=== PATIENT | male | born 1955 | race Caucasian/White ===

== ENCOUNTER 2024-08-13 11:23 | Outpatient (AMB) | payer MEDICARE, SELFPAY ==
--- NOTE | 2024-08-13 11:26 | A.OFFVIS_ITS ---
Vital Signs 08/13/24 11:35 Height 5 ft 11 in Weight 203 lb BMI 28.3 BP 132/82 Blood Pressure Location Lt brachial Position Sitting Respiration 16 Pulse 75 Pulse Source Pulse Oximeter Pulse Oximetry (%) 97 Oxygen Delivery Method Room Air Intake Visit Reasons: Severe Upper Lumbar Back Pain Intake Note: Patient comes in for initial visit was accompanied by friend Alvaro. Reports pain 08/07. Accompanied by: Friend Allergies No Known Allergies Allergy (Verified 08/13/24 11:36) HPI Comments Details: Bayron is a pleasant 69 years old gentleman who presents in my office with complains on lower back pain as well as pain in the between the shoulder blades as well as pain in the back of his knees. He reports that his pain started 2 years ago he thinks that the pain is a result of the compression fractures as well as arthritis of the lower back. He had fractured all 5 of his lumbar vertebral bodies unfortunately he had vertebroplasty instead of kyphoplasty for those vertebral bodies. Therefore while stability of the bones was established the correction of the deformities were was not performed. He is a patient with longstanding oncology history. He was diagnose with prostate cancer. He had multiple procedures, treatment with chemotherapy, treatment with testosterone blockers, extensive treatment with radiation. Some of his pain may be coming from the pelvis issues because he has extensive radiation in the past. He was examined with CT scan of the lumbar and thoracic spine and there were no metastasis found in the vertebral bodies. He reports his pain in terms of tissue damage as pulsing, throbbing, flushing, shooting, stabbing, sharp, crushing, dull, sore, hurting, aching, heavy, tiring, exhausting, sickening, fearful, punishing, spreading, radiating, piercing, tight sensation. He recently was evaluated but PSA level which is 0.1 basically non-existent. In terms of his cancer condition he is stable. He is claustrophobic and can not go to standard MRI machine. His past medical history significant for prostate cancer history of alcohol abuse history of liver cirrhosis history of gallstones history of odynophagia and difficulty swallowing history of arthritis and gout he is currently under observation of oncologist. His past surgical history is significant for modified radical prostatectomy following radiation and chemotherapy. Currently he is on testosterone blockers. He admits to smoke cigarettes 1 pack per day. He denies drinking alcohol he states that he is sober for past 3-4 months. He drinks 2 caffeinated beverages a day mostly coffee he use medicinal cannabis for his condition he reported that last rehab was for alcohol rehabilitation in 2019. She reports that his last drink was 3-4 months ago. [facility], [facility] Medical History (Updated 08/13/24 @ 16:43 by Jin Krishnamurthy MD) Prostate cancer MDD (major depressive disorder) Alcohol use disorder, severe, dependence Opioid dependence with opioid-induced disorder Cirrhosis Review of Systems Const Reports as per HPI ENT Reports Normal hearing present Card Reports no additional complaints Resp Reports no additional complaints GI Reports as per HPI Reports as per HPI Musc Reports as per HPI Neuro Reports no additional complaints, Reports Normal hearing present, Denies Abnormal speech present, Denies confusion and Denies Sensory deficit (Neuro) Psych Reports as per HPI and Denies confusion Physical Exam Vital Signs: Last Vital Signs Pulse 75 08/13/24 11:35 Resp 16 08/13/24 11:35 BP 132/82 08/13/24 11:35 Pulse Ox 97 08/13/24 11:35 Oxygen Delivery Method Room Air 08/13/24 11:35 BMI result Body Mass Index 28.3 Const General: no acute distress; No confusion Orientation/consciousness: patient oriented x3 and No confusion Eyes General: appearance normal, both eyes and all related structures Pupils: Equal, round and reactive pupils present EOM: EOMs intact bilaterally Neck Neck: Yes full ROM Chest Chest palpation & inspection: normal inspection of the chest Resp Effort & Inspection: normal respiratory effort, able to speak in complete sentences, normal respiratory pattern, no audible wheezes and no cough Cardio Jugular venous distension: no JVD GI Inspection: Yes normal to inspection Back/Spine/Pelvis Other: Unable to ambulate unassisted. Reports weakness in bilateral lower extremities. Ambulate with walker only. Exhibits classical forward flexion of the upper torso, reports increase of the pain with walking. Coughing and sneezing aggravates his pain. Valsalva maneuver aggravates his pain. Possibly spinal stenotic features. Neuro General: patient oriented x3, gait normal and No confusion Cranial nerves: Yes CN's II-XII intact bilaterally, Yes Equal, round and reac tive pupils present, Yes Normal hearing present and Yes Ability to bilaterally elevate shoulders present Speech: No Abnormal speech present Gait exam (Neuro): Normal gait present Motor exam (neuro): 5/5 motor strength present throughout Sensory Exam: No Sensory deficit (Neuro) Extrem General: No pedal edema Psych Speech and movement: Normal speech and movement present Affect: normal affect Attitude: cooperative Thought process: Normal thought process present Thought content: Normal thought content present Insight: Good insight present (Psych) Judgement: Good judgement present (Psych) Assessment & Plan Assessment & Plan (1) Sacral insufficiency fracture with delayed healing: Code(s): M84.48XG - Pathological fracture, other site, subsequent encounter for fracture with delayed healing Category: Medical (2) Low back pain: Code(s): M54.50 - Low back pain, unspecified Category: Medical (3) Spinal stenosis: Code(s): M48.00 - Spinal stenosis, site unspecified Category: Medical (4) Wedge compression fracture of fifth lumbar vertebra, sequela: Code(s): S32.050S - Wedge compression fracture of fifth lumbar vertebra, sequela Category: Medical (5) Chronic pain syndrome: Code(s): G89.4 - Chronic pain syndrome Category: Medical Plan We discussed today possibility of treating his pain with neuromodulation such as spinal cord stimulator versus intrathecal drug delivery system pain pump. The patient apparently we will be able to go for the MRI machine to evaluate his lumbar lumbar spine provided that this is open MRI. We will send him to [facility] MRI open facility. He also had sacral insufficiency fracture in the past some of his pain may come from not completely healed sacral insufficiency fracture. I will send him for x-ray of the pelvis to evaluate for potential sacral insufficiency fracture. After that I will invite patient for the appointment while reports already. I recommended him to schedule appointment with me in 1 month. Orders: Orders MR lumbar spine wo con Today M51.36 - Other intervertebral disc degeneration, lumbar region XR pelvis min 3V Today M54.50 - Low back pain, unspecified, M84.48XG - Pathological fracture, other site, subsequent encounter for fracture with delayed healing Patient Instructions: I here by testify that I spent 45 minutes in conversation with this patient as well as evaluating his referral records, planning his care, ordering the studies, and organizing this note. Coding Level of Care Code New Pt Level 4 (30091) Diagnoses Sacral insufficiency fracture with delayed healing M84.48XG Low back pain M54.50 Spinal stenosis M48.00 Wedge compression fracture of fifth lumbar vertebra, sequela S32.050S Chronic pain syndrome G89.4
[2024-08-13 11:35] VITALS: BP 132/82; PULSE 75; RESP 16; O2SAT 97; BMI 28.3
== END 2024-08-13 12:00 | disposition home or self-care (01) ==
PROVIDERS: PCP Internal Medicine; Visit Provider Anesthesiology
DX: M84.48XG Pathological fracture, other site, subsequent encounter for fracture with delayed healing (principal); M54.50 Low back pain, unspecified; M48.00 Spinal stenosis, site unspecified; G89.4 Chronic pain syndrome
CPT/HCPCS: 99204

== ENCOUNTER 2024-08-13 11:23 | Outpatient (REF) | payer MEDICARE, SELFPAY ==
--- NOTE | ~2024-08-13 | XR_ITS ---
EXAMINATION: XR PELVIS CLINICAL INFORMATION: Low back pain, patient unable to hold positioning, best images possible. COMPARISON: CT abdomen and pelvis of 01/28/2021. TECHNIQUE: 3 views of the pelvis. FINDINGS: Atherosclerotic aortoiliac calcifications with AP diameter of distal abdominal aorta approximately 3.8 cm, concerning for aneurysm. CT scan of 01/28/2021 demonstrated a 2.9 cm infrarenal abdominal aortic aneurysm. Dedicated imaging of the abdominal aorta recommended with ultrasound or CT scan. IVC filter partially imaged overlying the right mid to lower spine. Severe facet arthritis in the imaged mid to lower lumbar spine. Dense material in the lower imaged lumbar vertebral bodies with multilevel degenerative changes. Diffuse demineralization. Pubic symphysis is maintained. Severe degenerative changes in bilateral hips. Vascular calcifications. Moderate degenerative changes in bilateral sacroiliac joints. Multiple rounded pelvic calcifications, largest corticated calcification right hemipelvis measures 1.7 cm. XR/XR pelvis min 3V IMPRESSION: 1. Atherosclerotic aortoiliac calcifications with AP diameter of distal abdominal aorta approximately 3.8 cm, concerning for aneurysm. CT scan of 01/28/2021 demonstrated a 2.9 cm infrarenal abdominal aortic aneurysm. Dedicated imaging of the abdominal aorta recommended with ultrasound or CT scan. 2. Severe degenerative changes in bilateral hips. 3. Moderate degenerative changes in bilateral sacroiliac joints. Electronically signed by: Emani Castaneda MD 10/03/2024 01:30 PM [facility]
== END 2024-08-13 11:24 | disposition home or self-care (01) ==
LOC: HO.XRAY 11:23
PROVIDERS: PCP Internal Medicine; Visit Provider Anesthesiology
DX: M54.50 Low back pain, unspecified (principal); M84.48XG Pathological fracture, other site, subsequent encounter for fracture with delayed healing; M48.00 Spinal stenosis, site unspecified
CPT/HCPCS: 72190; 99202

== ENCOUNTER 2024-10-11 10:20 | Outpatient (AMB) | payer MEDICARE, SELFPAY ==
--- NOTE | 2024-10-11 10:25 | MHC.OFFVIS ---
Vital Signs 10/11/24 10:29 Height 5 ft 11 in Weight 211 lb BMI 29.4 BP 124/72 Blood Pressure Location Lt brachial Position Sitting Respiration 16 Pulse 94 Pulse Source Pulse Oximeter Pulse Oximetry (%) 94 Oxygen Delivery Method Room Air Intake Visit Reasons: discuss MRI results Intake Note: Patient comes in to discuss MRI results. Reports pain 09/06. Allergies No Known Allergies Allergy (Verified 10/11/24 10:30) HPI Comments Details: Bayron is back in my office to discuss the results of the pelvis x-ray as well as MRI of the lumbar spine. Both of the studies dictated as below. He has significant spinal stenosis. His pain and neurogenic claudication could be related to spinal stenosis. At the same time he has advanced atherosclerosis of the aorta and therefore his claudication we could be vascular in nature. We agreed today that I will send him for consult to our vascular surgeon Dr. Albrecht. For the past 5 years diameter of his aorta increased to 3.8 cm while in 2020 it was 2.9 cm. I believe this patient needs to be under observation for abdominal aortic aneurysm. I also decided to send him to our neurosurgeon Dr. Joseph however I realize that he might not be a good surgical candidate. He is a smoker he smokes 1 pack per day and he is also suffering from widespread atherosclerosis. I offered him treatment with intrathecal pain pump. [employer] brochure was given to the patient. If he decides to go for intrathecal pain pump trial he would need to give us a call and schedule an appointment we will discuss it as well as we will discuss psychological evaluation. Prior: a pleasant 69 years old gentleman who presents in my office with complains on lower back pain as well as pain in the between the shoulder blades as well as pain in the back of his knees. He reports that his pain started 2 years ago he thinks that the pain is a result of the compression fractures as well as arthritis of the lower back. He had fractured all 5 of his lumbar vertebral bodies unfortunately he had vertebroplasty instead of kyphoplasty for those vertebral bodies. Therefore while stability of the bones was established the correction of the deformities were was not performed. He is a patient with longstanding oncology history. He was diagnose with prostate cancer. He had multiple procedures, treatment with chemotherapy, treatment with testosterone blockers, extensive treatment with radiation. Some of his pain may be coming from the pelvis issues because he has extensive radiation in the past. He was examined with CT scan of the lumbar and thoracic spine and there were no metastasis found in the vertebral bodies. He reports his pain in terms of tissue damage as pulsing, throbbing, flushing, shooting, stabbing, sharp, crushing, dull, sore, hurting, aching, heavy, tiring, exhausting, sickening, fearful, punishing, spreading, radiating, piercing, tight sensation. He recently was evaluated but PSA level which is 0.1 basically non-existent. In terms of his cancer condition he is stable. He is claustrophobic and can not go to standard MRI machine. His past medical history significant for prostate cancer history of alcohol abuse history of liver cirrhosis history of gallstones history of odynophagia and difficulty swallowing history of arthritis and gout he is currently under observation of oncologist. His past surgical history is significant for modified radical prostatectomy following radiation and chemotherapy. Currently he is on testosterone blockers. He admits to smoke cigarettes 1 pack per day. He denies drinking alcohol he states that he is sober for past 3-4 months. He drinks 2 caffeinated beverages a day mostly coffee he use medicinal cannabis for his condition he reported that last rehab was for alcohol rehabilitation in 2019. She reports that his last drink was 3-4 months ago. [facility] Medical History (Updated 10/11/24 @ 12:40 by Jin Krishnamurthy MD) Prostate cancer MDD (major depressive disorder) Alcohol use disorder, severe, dependence Opioid dependence with opioid-induced disorder Cirrhosis Review of Systems Const All systems reviewed & are unremarkable except as noted in HPI and below ENT Reports Normal hearing present Neuro Reports Normal hearing present, Denies Abnormal speech present, Denies confusion and Denies Sensory deficit (Neuro) Psych Denies confusion Physical Exam Vital Signs: Last Vital Signs Pulse 94 10/11/24 10:29 Resp 16 10/11/24 10:29 BP 124/72 10/11/24 10:29 Pulse Ox 94 10/11/24 10:29 Oxygen Delivery Method Room Air 10/11/24 10:29 BMI result Body Mass Index 29.4 Const General: no acute distress; No confusion Orientation/consciousness: patient oriented x3 and No confusion Eyes General: appearance normal, both eyes and all related structures Pupils: Equal, round and reactive pupils present EOM: EOMs intact bilaterally Neck Neck: Yes full ROM Chest Chest palpation & inspection: normal inspection of the chest Resp Effort & Inspection: normal respiratory effort, able to speak in complete sentences, normal respiratory pattern, no audible wheezes and no cough Cardio Jugular venous distension: no JVD GI Inspection: Yes normal to inspection Back/Spine/Pelvis Other: Unable to ambulate unassisted. Reports weakness in bilateral lower extremities. Ambulate with walker only. Exhibits classical forward flexion of the upper torso, reports increase of the pain with walking. Coughing and sneezing aggravates his pain. Valsalva maneuver aggravates his pain. Possibly spinal stenotic features. Neuro General: patient oriented x3, gait normal and No confusion Cranial nerves: Yes CN's II-XII intact bilaterally, Yes Equal, round and reactive pupils present, Yes Normal hearing present and Yes Ability to bilaterally elevate shoulders present Speech: No Abnormal speech present Gait exam (Neuro): Normal gait present Motor exam (neuro): 5/5 motor strength present throughout Sensory Exam: No Sensory deficit (Neuro) Extrem General: No pedal edema Psych Speech and movement: Normal speech and movement present Affect: normal affect Attitude: cooperative Thought process: Normal thought process present Thought content: Normal thought content present Insight: Good insight present (Psych) Judgement: Good judgement present (Psych) Results Reviewed Results Reviewed: xr pelvis Date of Service: 08/13/24 Procedure(s): XR pelvis min 3V EXAMINATION: XR PELVIS CLINICAL INFORMATION: Low back pain, patient unable to hold positioning, best images possible. COMPARISON: CT abdomen and pelvis of 01/28/2021. TECHNIQUE: 3 views of the pelvis. FINDINGS: Atherosclerotic aortoiliac calcifications with AP diameter of distal abdominal aorta approximately 3.8 cm, concerning for aneurysm. CT scan of 01/28/2021 demonstrated a 2.9 cm infrarenal abdominal aortic aneurysm. Dedicated imaging of the abdominal aorta recommended with ultrasound or CT scan. IVC filter partially imaged overlying the right mid to lower spine. Severe facet arthritis in the imaged mid to lower lumbar spine. Dense material in the lower imaged lumbar vertebral bodies with multilevel degenerative changes. Diffuse demineralization. Pubic symphysis is maintained. Severe degenerative changes in bilateral hips. Vascular calcifications. Moderate degenerative changes in bilateral sacroiliac joints. Multiple rounded pelvic calcifications, largest corticated calcification right hemipelvis measures 1.7 cm. XR/XR pelvis min 3V IMPRESSION: 1. Atherosclerotic aortoiliac calcifications with AP diameter of distal abdominal aorta approximately 3.8 cm, concerning for aneurysm. CT scan of 01/28/2021 demonstrated a 2.9 cm infrarenal abdominal aortic aneurysm. Dedicated imaging of the abdominal aorta recommended with ultrasound or CT scan. 2. Severe degenerative changes in bilateral hips. 3. Moderate degenerative changes in bilateral sacroiliac joints. MRI lumbar spine with and without contrast Rayus 09/18/2024. Findings: Lumbar dextroscoliosis curvature. Chronic compression fractures and associated height loss status post kyphoplasty T12, L1, L3, L4, and L5. Approximate 3 mm retropulsion of the posterior margin of the chronic L1. Edema and enhancement of the posterior margins of the L3-L2 inferior and superior endplates respectively. Lumbar facet arthrosis. Conus and cauda equina of normal appearance. The conus tip at T12-L1. No acute paraspinal abnormalities identified. L1-L2 mild facet arthrosis, prominence of ligamentum flavum. Retropulsion of the posterior inferior margin of the chronic L1 fracture. This changes result in mild central stenosis with bilateral lateral recess encroachment. Mild right foraminal narrowing. [id number] left foraminal narrowing. L2-L3 facet arthrosis, prominence of ligamentum flavum. Posterior disc osteophyte. Moderate to severe central stenosis with bilateral lateral recess encroachment. Moderate bilateral foraminal narrowing, left greater than right. L3-L4 facet arthrosis and prominence of ligamentum flavum. Moderate to severe central canal stenosis with bilateral lateral recess encroachment. Severe right foraminal narrowing. Moderate to severe left foraminal narrowing. L4-5 facet arthrosis, ligamentum flavum prominence, [id number] central stenosis. Bilateral lateral recess encroachment. Moderate to severe bilateral foraminal narrowing. L5-S1 facet arthrosis no significant central stenosis moderate bilateral foraminal narrowing. Impression chronic compression fracture and associated height loss status post kyphoplasty T12, L1, L3, L4 and L5. No finding of acute fracture. 3 mm retropulsion of the posterior margin of chronic L1 fracture. Modic type 3 changes in the posterior margin of L2-L3 endplates. There is adjacent left posterior bilateral edema and enhancement at this level. Mild edematous changes and enhancement of the facet arthrosis. L1-L2 intervertebral level reveals mild facet arthrosis and prominence of ligamentum flavum. There is retropulsion of the posterior inferior margin of the chronic L1 fracture. This changes resulting in mild central stenosis with bilateral recess encroachment. Mild foraminal narrowing [id number] left foraminal narrowing. L2-L3 moderate to severe central stenosis with bilateral lateral recess encroachment. Moderate bilateral foraminal narrowing left greater than right.L4-L5 mild to moderate central canal stenosis Assessment & Plan Assessment & Plan (1) Sacral insufficiency fracture with delayed healing: Code(s): M84.48XG - Pathological fracture, other site, subsequent encounter for fracture with delayed healing Category: Medical (2) Low back pain: Code(s): M54.50 - Low back pain, unspecified Category: Medical (3) Spinal stenosis: Code(s): M48.00 - Spinal stenosis, site unspecified Category: Medical (4) Wedge compression fracture of fifth lumbar vertebra, sequela: Code(s): S32.050S - Wedge compression fracture of fifth lumbar vertebra, sequela Category: Medical (5) Chronic pain syndrome: Code(s): G89.4 - Chronic pain syndrome Category: Medical (6) Abdominal aortic aneurysm (AAA): Code(s): I71.40 - Abdominal aortic aneurysm, without rupture, unspecified Category: Medical (7) Peripheral vascular disease with claudication: Code(s): I73.9 - Peripheral vascular disease, unspecified Category: Medical (8) Neurogenic claudication: Code(s): R29.818 - Other symptoms and signs involving the nervous system Category: Medical Plan This patient is not very eager to consider Intrathecal drug delivery system pain pump treatment. Nevertheless brochure was given to him in to his caregiver to read and decide on this. I will refer him to Dr. Albrecht our vascular surgeon to evaluate his abdominal aortic aneurysm, it increased in past 3 years and now at almost 4 cm in diameter. He in any case needs follow-up. I also will refer him to Dr. Joseph with L2-L3 spinal stenosis which is moderate to severe in nature. Understandable he is not very good surgical candidate for major instrumentation with fusion however minimally invasive procedures possibly could improve his condition and prevent pelvic organ dysfunction. Orders: Referrals Vascular Surgery Referral I71.40 - Abdominal aortic aneurysm, without rupture, unspecified, I73.9 - Peripheral vascular disease, unspecified Neuro Spine Referral M48.00 - Spinal stenosis, site unspecified, R29.818 - Other symptoms and signs involving the nervous system Patient Instructions: I here by testify that I spent 35 minutes in conversation with this patient as well as planning his care making appropriate referrals and organizing this note. Coding Level of Care Code Est Pt Level 4 (80740) Diagnoses Sacral insufficiency fracture with delayed healing M84.48XG Low back pain M54.50 Spinal stenosis M48.00 Wedge compression fracture of fifth lumbar vertebra, sequela S32.050S Chronic pain syndrome G89.4 Abdominal aortic aneurysm (AAA) I71.40 Peripheral vascular disease with claudication I73.9 Neurogenic claudication R29.818
[2024-10-11 10:29] VITALS: BP 124/72; PULSE 94; RESP 16; O2SAT 94; BMI 29.4
== END 2024-10-11 10:52 | disposition home or self-care (01) ==
PROVIDERS: PCP Internal Medicine; Visit Provider Anesthesiology
DX: M54.50 Low back pain, unspecified (principal); M48.00 Spinal stenosis, site unspecified; S32.050S Wedge compression fracture of fifth lumbar vertebra, sequela; G89.4 Chronic pain syndrome; I71.40 Abdominal aortic aneurysm, without rupture, unspecified; I73.9 Peripheral vascular disease, unspecified; R29.818 Other symptoms and signs involving the nervous system
CPT/HCPCS: 99214

== ENCOUNTER → 2024-10-11 10:20 | Outpatient (BNVA) | payer MEDICARE, SELFPAY | PROVIDERS: PCP Internal Medicine; Visit Provider Anesthesiology | DX: M84.48XG Pathological fracture, other site, subsequent encounter for fracture with delayed healing (principal); M54.50 Low back pain, unspecified; M48.00 Spinal stenosis, site unspecified; G89.4 Chronic pain syndrome; I71.40 Abdominal aortic aneurysm, without rupture, unspecified; I73.9 Peripheral vascular disease, unspecified; R29.818 Other symptoms and signs involving the nervous system; Z71.2 Person consulting for explanation of examination or test findings | CPT/HCPCS: 99212 ==

== ENCOUNTER 2024-11-27 11:33 | Outpatient (AMB) | payer MEDICARE, SELFPAY ==
[2024-11-27 11:36] VITALS: BMI 29.4
--- NOTE | 2024-11-27 11:36 | A.OFFVIS_ITS ---
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 Pt states elevating legs helps with swelling. 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 He was seen by pain management team that ordered a plain film and was noted to have a 3.8 cm aneurysm. He reports that that has increased in size and it was actually seen by vascular surgery at [facility] in the remote past. At the current time he is asymptomatic from this. He smokes proximally a pack a day. He is a nondiabetic. He has been seeing pain management for persistent back pain due to lumbosacral compression fractures. He now presents to us for vascular evaluation [facility] Medical History Prostate cancer MDD (major depressive disorder) Alcohol use disorder, severe, dependence Opioid dependence with opioid-induced disorder Cirrhosis Social History (Updated 11/27/24 @ 11:43 by PARAS Nicholson) Cigarette Packs Per Day: 1 Review of Systems Const All systems reviewed & are unremarkable except as noted in HPI and below Reports no additional complaints ENT Reports Normal hearing present Card Denies chest pain, Denies chest pain at rest, Denies chest pain with activity and Denies pedal edema Resp Denies cough GI Denies abdominal pain Musc Denies abnormal gait, Denies muscle cramps and Denies radiating pain into limb Skin/Breast Denies skin ulcer and Denies wounds Neuro Reports Normal hearing present and Denies abnormal gait Psych Reports no additional complaints Physical Exam Vital Signs: BMI result Body Mass Index 29.4 Const General: cooperative, healthy appearing and comfortable Orientation/consciousness: oriented to person, oriented to place and oriented to time HEENT Head: Yes normal to inspection Neck Neck: Yes normal visual inspection Carotids: no bruits Chest Chest palpation & inspection: normal inspection of the chest Resp Effort & Inspection: normal respiratory effort and able to speak in complete sentences Auscultation: clear to auscultation bilaterally, no crackles, no rales, no rhonchi and no wheezes Cardio Other: Palpable dorsalis pedis pulses bilateral Rate: regular rate Rhythm: regular rhythm Heart sounds: S1 normal heart sound present and S2 normal heart sound present Bruits: no carotid bruits Peripheral pulses: Peripheral pulses 2+ throughout GI Inspection: Yes normal to inspection Skin Wounds: no wounds Hair: normal Neuro General: oriented to person, oriented to place and oriented to time Cranial nerves: Yes CN's II-XII intact bilaterally and Yes Normal hearing present Cognition (Neuro): normal cognition Motor exam (neuro): 5/5 motor strength present throughout Extrem Other: venous exam: +2 edema in bilateral lower extremity General: No clubbing, No cyanosis and Yes edema Psych Appearance: grossly normal Mental Status: mental status grossly normal Speech and movement: Normal speech and movement present Assessment & Plan Assessment & Plan (1) Abdominal aortic aneurysm (AAA): Code(s): I71.40 - Abdominal aortic aneurysm, without rupture, unspecified Category: Medical Qualifiers: Abdominal aorta location: infrarenal aorta Presence of rupture: without rupture Qualified Code(s): I71.43 - Infrarenal abdominal aortic aneurysm, without rupture Plan: In short patient has radiologic evidence of a AAA on on plain film x-ray of 3.8 cm. We have discussed the pathophysiology of aortic aneurysms and the risk of ruptures. We have discussed rupture risk based on size. In addition we have discussed conservative measures and risk factor modification in particular smoking cessation for prevention of increase in size of the aneurysm. We have scheduled this patient for aortic ultrasound to better elucidate the true size of this aneurysm. He will follow up with us after testing. Thank you for allowing us to participate in the care of this patient Orders: Orders US abdominal aortic aneurysm 1 Week I71.43 - Infrarenal abdominal aortic aneurysm, without rupture Coding Level of Care Code New Pt Level 4 (48288) Complex EM visit Add On G2211 Diagnoses Infrarenal abdominal aortic aneurysm (AAA) without rupture I71.43 Abdominal aorta location: infrarenal aorta Presence of rupture: without rupture
--- OUTSIDE RECORDS SUMMARY | 2024-11-27 11:45 | XMS_ITS | Continuity of Care Document ---
Author Organization [facility] Address [address] [place] [address] Phone Care Team Providers Care Utility Teller Name Role Phone Mary Correa MD Unavailable Unavailable Allergies, Adverse Reactions, Alerts Substance Reaction Status Criticality No Known Drug Allergies Active No I nformation SALICYLATES bleeding Active No Information No Known Drug Allergies Active No I nformation SALICYLATES bleeding Active No Information HYDROCODONE BITARTRATE rash Active No In formation acetaminophen rash Active No Information No Known Drug Allergies Active No I nformation No Known Drug Allergies Active No I nformation Medications Medication Instructions Dosage Effective Dates (start - stop) Status Comments Percocet 10 mg-325 mg tablet take 1 tablet by oral route every 6 hours as needed 1.00 tablet - Active Abilify 2 mg tablet - Active Zoloft 100 mg tablet take 1 tablet (100MG) by oral route every day 100 MG - Active Wellbutrin XL 300 mg 24 hr tablet, extended release take 1 tablet (300MG) by oral route every day 300 MG - Active Klor-Con/EF 25 mEq effervescent tablet take 1 tablet (25MEQ) by oral route every day dissolved in 120-240 mL of cold water 25 MEQ - Active DHEA 50 mg capsule - Active lisinopril-hydroch lorothiazide 10 mg-12.5 mg tablet take 1 tablet by oral route every day 1.00 tablet - Active buspirone 10 mg tablet take 1 tablet (10MG) by oral route 3 times every day 10 MG - Active warfarin 1 mg tablet take 1 tablet (1MG) by oral route every day 1 MG - Active Levitra 5 mg tablet take 1 tablet (5MG) by oral route every day as needed approximately 1 hour before sexual activity - Active clindamycin 300 mg capsule take 2 caps bid - No Longer Active Procedures Procedure Date Applic Short Leg Splint Offic/outpt E&m New Mod Sever 3 Fiberglass Cast sup sht leg splnt fbrgl Advance Directives Directive Yes / No Effective Date File Name Resuscitation Not Answered N/A N/A Life Support Not Answered N/A N/A Intubation Not Answered N/A N/A Antibiotics Not Answered N/A N/A IV Fluid Support Not Answered N/A N/A Tube Feed Not Answered N/A N/A Other Directive N/A N/A WARNING:The information contained in this section is historical and is provided for information only and does not constitute a legal document or any assurance that the information is still accurate. Please verify the information with the miles of the legal document before using it for clinical purposes. Encounters Encounter Description Practice Location Reason(s) For Visit Diagnoses Date Provider Providers Copied on Encounter Offic/outpt E&m [facility], [address], [place], [place], [id number], tel:[phone] [facility] CELLULITIS & ABSCESS FOOT, EXCEPFX,CL,N OS BONE OF FOOT,EXCPT TOE Madeline Hernandez. [address] [place] [address], [address], . tel:[phone] Referring Provider: Mary Correa MD, [address] [place] [address], [id number]. tel:[phone] Family History Family Member Type Diagnosis Age At Onset No Information Payers Payer name Insurance type Covered democrat ID Authoriza tion(s) No Information Social History Type Description Quantity Date Captured Comments Alcohol Use Details Unknown Caffeine Use Details Unknown Tobacco Use Status No Information Smoking Status Unknown if ever smoked 15 Sex Male Vital Signs Date / Time: Height Weight BMI Pulse Rate Blood Pressure Temperature Respiratory Rate Body Surface Area Head Circumference Head Circ. Percentile Wt./Pop. Percentile BMI percentile Pulse Ox Inhaled Ox 2:39 PM 72 /min 130/80 mm[Hg] 97.70 F Chief Complaint And Reason For Visit No Information Reason For Referral Reason For Referral No Information History Of Present Illness Encounter Date Complaint History Of Prese nt Illness No Information Functional Status Date Functional Assessmen t No Information Instructions Date Instruction Additional Infor mation No Information Assessments Type Assessment Date No Information Patient Care Teams Name Effective Dates (start - stop) Status Members No Information
--- OUTSIDE RECORDS SUMMARY | 2024-11-27 11:45 | XMS_ITS | Clinical Summary ---
Author Organization Unknown Care Team Providers Care Director Operating Room Name Role Phone KRISTIN LEONARD, DONNA Unavailable Unavaildemi BOWEN OT, SULEMA Unavailable Unavailable DAO PATTONN, TEVIN Unavailable Unavailable ALEX LANE, KOFI Unavailable Unavailable Payers Payer Name Policy Type Policy Number Effective Date Expira tion Date MEDICARE - [place] - PD [id number] [facility] [id number] Problems Condition Name Condition Details Condition Category Status Onset Date Resolution Date Last Treatment Date Treating Clinician Comments PNEUMONIA, UNSPECIFIED ORGANISM Active 03-01 00:00: 00 CHR OBSTRUCTIVE PULMON DISEASE WITH (ACUTE) LOWER RESP INFCT Active 11-28 00:00: 00 SEPSIS, UNSPECIFIED ORGANISM Active 11-28 00:00: 00 ENCOUNTER FOR ATTENTION TO GASTROSTOMY Active 11-28 00:00: 00 ALCOHOLIC CIRRHOSIS OF LIVER WITHOUT ASCITES Active 11-28 00:00: 00 ALCOHOL DEPENDENCE WITH WITHDRAWAL, UNSPECIFIED Active 11-28 00:00: 00 OTHER PSYCHOACTIVE SUBSTANCE DEPENDENCE, UNCOMPLICATE D Active 11-28 00:00: 00 ACUTE RESPIRATORY FAILURE WITH HYPOXIA Active 11-28 00:00: 00 PORTAL HYPERTENSION Active 11-28 00:00: 00 HEPATIC FAILURE, UNSPECIFIED WITHOUT COMA Active 11-28 00:00: 00 GENERALIZED ANXIETY DISORDER Active 11-28 00:00: 00 MAJOR DEPRESSIVE DISORDER, SINGLE EPISODE, UNSPECIFIED Active 11-28 00:00: 00 OTH FRACTURE OF RIGHT PUBIS, SUBS FOR FX W ROUTN HEAL Active 11-28 00:00: 00 VENOUS INSUFFICIENC Y (CHRONIC) (PERIPHERAL) Active - 00:00: 00 UNSPECIFIED OSTEOARTHRIT IS, UNSPECIFIED SITE Active 11-28 00:00: 00 CHRONIC PAIN SYNDROME Active 11-28 00:00: 00 OBSTRUCTIVE SLEEP APNEA (ADULT) (PEDIATRIC) Active 11-28 00:00: 00 DYSPHAGIA, UNSPECIFIED Active 11-28 00:00: 00 NONDISP FX OF TRAPEZIUM, R WRIST, SUBS FOR FX W ROUTN HEAL Active 11-28 00:00: 00 FRACTURE OF ONE RIB, LEFT SIDE, SUBS FOR FX W ROUTN HEAL Active 11-28 00:00: 00 OTHER TOXIC ENCEPHALOPAT HY Active 11-28 00:00: 00 ATTENTION-DE FICIT HYPERACTIVIT Y DISORDER, UNSPECIFIED TYPE Active 11-28 00:00: 00 HYPOTENSION, UNSPECIFIED Active 11-28 00:00: 00 ELEVATED WHITE BLOOD CELL COUNT, UNSPECIFIED Active 11-28 00:00: 00 RHABDOMYOLYS IS Active 11-28 00:00: 00 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 Ordering Clinician Indication Dosage Frequency Signature (SIG) Comments Components folic acid 1 mg tablet 2022-11 00:00: 00 Yes [id number] 1 tablet DAILY 1 tablet DAILY (route: oral) Med Classific ation: Electroly te Balance-N utritiona l Products nicotine 21 mg/24 hr daily transdermal patch 2022-11 00:00: 00 02-07 00:00 :00 No [id number] Per instruc tions EVERY DAY Per instructio ns EVERY DAY (route: transderma l) Med Classific ation: Chemical Dependenc y, Agents to Treat furosemide 20 mg tablet 2022-11 00:00: 00 02-07 00:00 :00 No [id number] Per instruc tions Per instructio ns (route: oral) Med Classific ation: Cardiovas cular Therapy Agents atomoxetine 40 mg capsule 02-07 00:00: 00 Yes [id number] 1 capsule 2 TIMES DAILY 1 capsule 2 TIMES DAILY (route: oral) Med Classific ation: Central Nervous System Agents divalproex 125 mg capsule,del ayed release sprinkle 02-07 00:00: 00 Yes [id number] 3 capsule DAILY 3 capsule DAILY (route: oral) Med Classific ation: Central Nervous System Agents fluticasone propionate 44 mcg/actuati on HFA aerosol inhaler 02-07 00:00: 00 Yes [id number] 1 puff 2 TIMES DAILY 1 puff 2 TIMES DAILY (route: inhalation ) Med Classific ation: Respirato ry Therapy Agents hydroxyzine HCl 25 mg tablet 02-07 00:00: 00 Yes [id number] 1 tablet BEDTIME 1 tablet BEDTIME (route: oral) Med Classific ation: Central Nervous System Agents sertraline 25 mg tablet 02-07 00:00: 00 Yes [id number] 1 tablet DAILY 1 tablet DAILY (route: oral) Med Classific ation: Central Nervous System Agents tiotropium bromide 18 mcg capsule with inhalation device 02-07 00:00: 00 Yes [id number] 1 inhalat ion DAILY 1 inhalation DAILY (route: inhalation ) Med Classific ation: Respirato ry Therapy Agents trazodone 50 mg tablet 02-07 00:00: 00 Yes [id number] 0.5 tablet 2 TIMES DAILY 0.5 tablet 2 TIMES DAILY (route: oral) Med Classific ation: Central Nervous System Agents Osmolite 1.2 Magdy 0.06 gram-1.2 kcal/mL oral liquid 02-07 00:00: 00 Yes [id number] 240 mL 4 TIMES DAILY 240 mL 4 TIMES DAILY (route: oral) Alternate Route: PEG TUBE. Med Classific ation: Electroly te Balance-N utritiona l Products water oral liquid 02-07 00:00: 00 Yes [id number] 60 mL 4 TIMES DAILY 60 mL 4 TIMES DAILY (route: oral) Alternate Route: PEG TUBE. Med Classific ation: Chemicals -Pharmace utical Adjuvants hydromorpho ne 2 mg tablet 02-07 00:00: 00 Yes [id number] 1 tablet EVERY 4 HOURS 1 tablet EVERY 4 HOURS (route: oral) Med Classific ation: Analgesic , Anti-infl ammatory or Antipyret ic furosemide 20 mg tablet 02-23 00:00: 00 Yes [id number] 1 tablet DAILY 1 tablet DAILY (route: oral) Med Classific ation: Cardiovas cular Therapy Agents potassium chloride ER 20 mEq tablet,exte nded release 02-23 00:00: 00 Yes [id number] 1 tablet DAILY 1 tablet DAILY (route: oral) Med Classific ation: Electroly te Balance-N utritiona l Products spironolact one 25 mg tablet 02-23 00:00: 00 Yes [id number] 1 tablet DAILY 1 tablet DAILY (route: oral) Med Classific ation: Cardiovas cular Therapy Agents Vital Signs Vital Name Observation Time Observation Value Commen ts Temperature 2024-04-04 09:13:00.000 98 [degF] Temperature 2024-04-03 10:24:00.000 97.8 [degF] Temperature 2024-03-30 12:51:00.000 97.2 [degF] Temperature 2024-03-28 13:07:00.000 97.7 [degF] Temperature 2024-03-27 12:34:00.000 97.2 [degF] Temperature 2024-03-27 10:39:00.000 98.1 [degF] Temperature 2024-03-22 10:36:00.000 97.2 [degF] Temperature 2024-03-20 14:05:00.000 97.2 [degF] Temperature 2024-03-20 13:26:00.000 97.2 [degF] Temperature 2024-03-20 09:03:00.000 98 [degF] Temperature 2024-03-15 13:14:00.000 97.9 [degF] Temperature 2024-03-15 11:36:00.000 98.4 [degF] Temperature 2024-03-13 14:29:00.000 98.2 [degF] Temperature 2024-03-11 14:15:00.000 98.8 [degF] Temperature 2024-03-08 12:24:00.000 97.7 [degF] Temperature 2024-03-08 12:23:00.000 97.7 [degF] Temperature 2024-03-07 09:13:00.000 97.2 [degF] Temperature 2024-03-06 11:22:00.000 97.6 [degF] Temperature 2024-03-01 11:56:00.000 98.8 [degF] Temperature 2024-02-23 17:18:00.000 98.1 [degF] Temperature 2024-02-21 12:15:00.000 97.7 [degF] Temperature 2024-02-21 10:19:00.000 97.2 [degF] Temperature 2024-02-17 10:15:00.000 98.2 [degF] Temperature 2024-02-16 09:35:00.000 97.2 [degF] Temperature 2024-02-14 09:17:00.000 97.7 [degF] Temperature 2024-02-14 09:15:00.000 97.7 [degF] Temperature 2024-02-10 16:00:00.000 98.2 [degF] Temperature 2024-02-10 09:17:00.000 97.2 [degF] Temperature 2024-02-08 09:35:00.000 97.6 [degF] BMI (%) 2024-03-01 11:55:00.000 23 kg/m2 BMI (%) 2024-02-08 09:35:00.000 23 kg/m2 Height 2024-03-01 11:55:00.000 74 [in_us] Height 2024-02-08 09:35:00.000 74 [in_us] Pulse 2024-04-04 09:13:00.000 75 /min Pulse 2024-04-03 10:24:00.000 81 /min Pulse 2024-03-30 12:51:00.000 92 /min Pulse 2024-03-28 13:07:00.000 97 /min Pulse 2024-03-27 12:34:00.000 69 /min Pulse 2024-03-27 10:39:00.000 74 /min Pulse 2024-03-22 10:36:00.000 72 /min Pulse 2024-03-20 14:05:00.000 74 /min Pulse 2024-03-20 13:26:00.000 74 /min Pulse 2024-03-20 09:03:00.000 81 /min Pulse 2024-03-15 13:14:00.000 74 /min Pulse 2024-03-15 11:36:00.000 80 /min Pulse 2024-03-13 14:29:00.000 51 /min Pulse 2024-03-11 14:15:00.000 72 /min Pulse 2024-03-08 12:24:00.000 85 /min Pulse 2024-03-08 12:23:00.000 80 /min Pulse 2024-03-07 09:13:00.000 90 /min Pulse 2024-03-06 11:22:00.000 80 /min Pulse 2024-03-01 11:55:00.000 71 /min Pulse 2024-02-23 17:18:00.000 68 /min Pulse 2024-02-21 12:35:00.000 85 /min Pulse 2024-02-21 12:15:00.000 82 /min Pulse 2024-02-21 10:19:00.000 67 /min Pulse 2024-02-17 10:15:00.000 104 /min Pulse 2024-02-16 09:35:00.000 74 /min Pulse 2024-02-14 14:33:00.000 82 /min Pulse 2024-02-14 09:17:00.000 92 /min Pulse 2024-02-14 09:15:00.000 72 /min Pulse 2024-02-10 16:00:00.000 99 /min Pulse 2024-02-10 09:17:00.000 92 /min Pulse 2024-02-08 09:35:00.000 96 /min O2 Saturation (%) 2024-04-04 09:13:00.000 97 % O2 Saturation (%) 2024-04-03 10:24:00.000 98 % O2 Saturation (%) 2024-03-30 12:51:00.000 97 % O2 Saturation (%) 2024-03-28 13:07:00.000 99 % O2 Saturation (%) 2024-03-27 12:34:00.000 99 % O2 Saturation (%) 2024-03-27 10:39:00.000 99 % O2 Saturation (%) 2024-03-22 10:36:00.000 97 % O2 Saturation (%) 2024-03-20 14:05:00.000 96 % O2 Saturation (%) 2024-03-20 13:26:00.000 96 % O2 Saturation (%) 2024-03-20 09:03:00.000 98 % O2 Saturation (%) 2024-03-15 13:14:00.000 97 % O2 Saturation (%) 2024-03-15 11:36:00.000 99 % O2 Saturation (%) 2024-03-13 14:29:00.000 99 % O2 Saturation (%) 2024-03-11 14:15:00.000 97 % O2 Saturation (%) 2024-03-08 12:23:00.000 97 % O2 Saturation (%) 2024-03-07 09:13:00.000 90 % O2 Saturation (%) 2024-03-06 11:22:00.000 97 % O2 Saturation (%) 2024-03-01 11:55:00.000 94 % O2 Saturation (%) 2024-02-23 17:18:00.000 96 % O2 Saturation (%) 2024-02-21 12:35:00.000 100 % O2 Saturation (%) 2024-02-21 12:15:00.000 96 % O2 Saturation (%) 2024-02-21 10:19:00.000 96 % O2 Saturation (%) 2024-02-17 10:15:00.000 94 % O2 Saturation (%) 2024-02-16 09:37:00.000 94 % O2 Saturation (%) 2024-02-16 09:35:00.000 94 % O2 Saturation (%) 2024-02-14 14:33:00.000 89 % O2 Saturation (%) 2024-02-14 09:17:00.000 96 % O2 Saturation (%) 2024-02-14 09:15:00.000 96 % O2 Saturation (%) 2024-02-10 16:00:00.000 99 % O2 Saturation (%) 2024-02-10 09:17:00.000 91 % O2 Saturation (%) 2024-02-08 09:35:00.000 95 % Respirations 2024-04-04 09:13:00.000 18 /min Respirations 2024-04-03 10:24:00.000 16 /min Respirations 2024-03-30 12:51:00.000 17 /min Respirations 2024-03-28 13:07:00.000 20 /min Respirations 2024-03-27 12:34:00.000 17 /min Respirations 2024-03-27 10:39:00.000 16 /min Respirations 2024-03-22 10:36:00.000 16 /min Respirations 2024-03-20 14:05:00.000 17 /min Respirations 2024-03-20 13:26:00.000 16 /min Respirations 2024-03-20 09:03:00.000 18 /min Respirations 2024-03-15 13:14:00.000 20 /min Respirations 2024-03-15 11:36:00.000 16 /min Respirations 2024-03-13 14:29:00.000 18 /min Respirations 2024-03-11 14:15:00.000 17 /min Respirations 2024-03-08 12:24:00.000 20 /min Respirations 2024-03-08 12:23:00.000 17 /min Respirations 2024-03-07 09:13:00.000 16 /min Respirations 2024-03-06 11:22:00.000 20 /min Respirations 2024-03-01 11:55:00.000 20 /min Respirations 2024-02-23 17:18:00.000 17 /min Respirations 2024-02-21 12:15:00.000 20 /min Respirations 2024-02-21 10:19:00.000 17 /min Respirations 2024-02-17 10:15:00.000 18 /min Respirations 2024-02-16 09:35:00.000 17 /min Respirations 2024-02-14 09:17:00.000 18 /min Respirations 2024-02-14 09:15:00.000 17 /min Respirations 2024-02-10 16:00:00.000 20 /min Respirations 2024-02-10 09:17:00.000 17 /min Respirations 2024-02-08 09:35:00.000 18 /min Weight (lbs) 2024-03-15 13:14:00.000 175.2 [lb_av] Weight (lbs) 2024-03-01 11:55:00.000 184 [lb_av] Weight (lbs) 2024-02-08 09:35:00.000 184.4 [lb_av] Systolic Blood Pressure 2024-04-04 09:13:00.000 142 mm [Hg] Systolic Blood Pressure 2024-04-03 10:24:00.000 122 mm [Hg] Systolic Blood Pressure 2024-03-30 12:51:00.000 116 mm [Hg] Systolic Blood Pressure 2024-03-28 13:07:00.000 110 mm [Hg] Systolic Blood Pressure 2024-03-27 12:34:00.000 110 mm [Hg] Systolic Blood Pressure 2024-03-27 10:39:00.000 122 mm [Hg] Systolic Blood Pressure 2024-03-22 10:36:00.000 126 mm [Hg] Systolic Blood Pressure 2024-03-20 14:05:00.000 110 mm [Hg] Systolic Blood Pressure 2024-03-20 13:26:00.000 110 mm [Hg] Systolic Blood Pressure 2024-03-20 09:03:00.000 134 mm [Hg] Systolic Blood Pressure 2024-03-15 13:14:00.000 122 mm [Hg] Systolic Blood Pressure 2024-03-15 11:36:00.000 128 mm [Hg] Systolic Blood Pressure 2024-03-13 14:29:00.000 122 mm [Hg] Systolic Blood Pressure 2024-03-11 14:15:00.000 106 mm [Hg] Systolic Blood Pressure 2024-03-08 12:24:00.000 110 mm [Hg] Systolic Blood Pressure 2024-03-08 12:23:00.000 110 mm [Hg] Systolic Blood Pressure 2024-03-07 09:13:00.000 100 mm [Hg] Systolic Blood Pressure 2024-03-06 11:22:00.000 109 mm [Hg] Systolic Blood Pressure 2024-03-01 11:55:00.000 130 mm [Hg] Systolic Blood Pressure 2024-02-23 17:18:00.000 148 mm [Hg] Systolic Blood Pressure 2024-02-21 12:35:00.000 138 mm [Hg] Systolic Blood Pressure 2024-02-21 12:15:00.000 142 mm [Hg] Systolic Blood Pressure 2024-02-21 10:19:00.000 136 mm [Hg] Systolic Blood Pressure 2024-02-17 10:15:00.000 122 mm [Hg] Systolic Blood Pressure 2024-02-16 09:35:00.000 124 mm [Hg] Systolic Blood Pressure 2024-02-16 09:26:00.000 124 mm [Hg] Systolic Blood Pressure 2024-02-14 14:33:00.000 126 mm [Hg] Systolic Blood Pressure 2024-02-14 09:17:00.000 110 mm [Hg] Systolic Blood Pressure 2024-02-14 09:15:00.000 110 mm [Hg] Systolic Blood Pressure 2024-02-10 16:00:00.000 138 mm [Hg] Systolic Blood Pressure 2024-02-10 09:17:00.000 112 mm [Hg] Systolic Blood Pressure 2024-02-08 09:35:00.000 108 mm [Hg] Diastolic Blood Pressure 2024-04-04 09:13:00.000 88 mm [Hg] Diastolic Blood Pressure 2024-04-03 10:24:00.000 80 mm [Hg] Diastolic Blood Pressure 2024-03-30 12:51:00.000 72 mm [Hg] Diastolic Blood Pressure 2024-03-28 13:07:00.000 80 mm [Hg] Diastolic Blood Pressure 2024-03-27 12:34:00.000 68 mm [Hg] Diastolic Blood Pressure 2024-03-27 10:39:00.000 80 mm [Hg] Diastolic Blood Pressure 2024-03-22 10:36:00.000 62 mm [Hg] Diastolic Blood Pressure 2024-03-20 14:05:00.000 60 mm [Hg] Diastolic Blood Pressure 2024-03-20 13:26:00.000 60 mm [Hg] Diastolic Blood Pressure 2024-03-20 09:03:00.000 88 mm [Hg] Diastolic Blood Pressure 2024-03-15 13:14:00.000 66 mm [Hg] Diastolic Blood Pressure 2024-03-15 11:36:00.000 80 mm [Hg] Diastolic Blood Pressure 2024-03-13 14:29:00.000 78 mm [Hg] Diastolic Blood Pressure 2024-03-11 14:15:00.000 62 mm [Hg] Diastolic Blood Pressure 2024-03-08 12:24:00.000 60 mm [Hg] Diastolic Blood Pressure 2024-03-08 12:23:00.000 62 mm [Hg] Diastolic Blood Pressure 2024-03-07 09:13:00.000 60 mm [Hg] Diastolic Blood Pressure 2024-03-06 11:22:00.000 71 mm [Hg] Diastolic Blood Pressure 2024-03-01 11:55:00.000 88 mm [Hg] Diastolic Blood Pressure 2024-02-23 17:18:00.000 68 mm [Hg] Diastolic Blood Pressure 2024-02-21 12:35:00.000 84 mm [Hg] Diastolic Blood Pressure 2024-02-21 12:15:00.000 78 mm [Hg] Diastolic Blood Pressure 2024-02-21 10:19:00.000 82 mm [Hg] Diastolic Blood Pressure 2024-02-17 10:15:00.000 90 mm [Hg] Diastolic Blood Pressure 2024-02-16 09:35:00.000 74 mm [Hg] Diastolic Blood Pressure 2024-02-16 09:26:00.000 74 mm [Hg] Diastolic Blood Pressure 2024-02-14 14:33:00.000 92 mm [Hg] Diastolic Blood Pressure 2024-02-14 09:17:00.000 72 mm [Hg] Diastolic Blood Pressure 2024-02-14 09:15:00.000 72 mm [Hg] Diastolic Blood Pressure 2024-02-10 16:00:00.000 84 mm [Hg] Diastolic Blood Pressure 2024-02-10 09:17:00.000 68 mm [Hg] Diastolic Blood Pressure 2024-02-08 09:35:00.000 72 mm [Hg] Plan of Treatment Planned Activity Planned Date Details Comments Future Scheduled Test SKILLED NU RSE TO EVALUATE PATIENT, IDENTIFY PRIMARY AND CO-MORBID CONDITIONS CODED PER CODING GUIDELINES, AND DEVELOP PATIENT SPECIFIC PLAN OF CARE THAT INCLUDES PATIENT GOAL FOR HOME HEALTH. [code = SKILLED NURSE TO EVALUATE PATIENT, IDENTIFY PRIMARY AND CO-MORBID CONDITIONS CODED PER CODING GUIDELINES, AND DEVELOP PATIENT SPECIFIC PLAN OF CARE THAT INCLUDES PATIENT GOAL FOR HOME HEALTH.] Future Scheduled Test SKILLED NU RSE TO REVIEW PATIENT MEDICATIONS. INSTRUCT PATIENT/CAREGIVER ON MONITORING OF EFFECTIVENESS, ADVERSE DRUG REACTIONS, SIDE EFFECTS OF ALL MEDICATIONS (PRESCRIPTION/-OTC/HIGH RISK MEDS), AND HOW AND WHEN TO REPORT PROBLEMS. [code = SKILLED NURSE TO REVIEW PATIENT MEDICATIONS. INSTRUCT PATIENT/CAREGIVER ON MONITORING OF EFFECTIVENESS, ADVERSE DRUG REACTIONS, SIDE EFFECTS OF ALL MEDICATIONS (PRESCRIPTION/-OTC/HIGH RISK MEDS), AND HOW AND WHEN TO REPORT PROBLEMS.] Future Scheduled Test SKILLED NU RSE TO ASSESS ANXIETY AND PROVIDE ASSISTANCE TO PATIENT FOR UNDERSTANDING AND MANAGEMENT OF FEELINGS. [code = SKILLED NURSE TO ASSESS ANXIETY AND PROVIDE ASSISTANCE TO PATIENT FOR UNDERSTANDING AND MANAGEMENT OF FEELINGS.] Future Scheduled Test SKILLED NU RSE FOR INSTRUCTION/ REINFORCEMENT OF NEEDS RELATED TO NUTRITION/HYDRATION. [code = SKILLED NURSE FOR INSTRUCTION/ REINFORCEMENT OF NEEDS RELATED TO NUTRITION/HYDRATION. ] Future Scheduled Test SKILLED NU RSE FOR TEACHING REGARDING THE ADMINISTRATION OF ENTERAL NUTRITION OSMOLITE 1.2 , 4 TIMES PER DAY, BOLUS , FLUSH WITH 60 ML FREE WATER BEFORE AND AFTER EACH FEEDING INCLUDING TEACHING ON ASPIRATION PRECAUTIONS, CHANGE DCD CHANGE DAILY, AND S/S OF COMPLICATIONS TO REPORT. [code = SKILLED NURSE FOR TEACHING REGARDING THE ADMINISTRATION OF ENTERAL NUTRITION OSMOLITE 1.2 , 4 TIMES PER DAY, BOLUS , FLUSH WITH 60 ML FREE WATER BEFORE AND AFTER EACH FEEDING INCLUDING TEACHING ON ASPIRATION PRECAUTIONS, CHANGE DCD CHANGE DAILY, AND S/S OF COMPLICATIONS TO REPORT.] Future Scheduled Test SKILLED NU RSE FOR O/A, TEACHING RELATED TO DYSPHAGIA FOR EARLY IDENTIFICATION OF EXACERBATION OF DISEASE PROCESS. [code = SKILLED NURSE FOR O/A, TEACHING RELATED TO DYSPHAGIA FOR EARLY IDENTIFICATION OF EXACERBATION OF DISEASE PROCESS.] Future Scheduled Test OCCUPATION AL THERAPIST TO EVALUATE PATIENT FOR SAFETY [code = OCCUPATIONAL THERAPIST TO EVALUATE PATIENT FOR SAFETY ] Future Scheduled Test SKILLED NU RSE FOR O/A OF RESPIRATORY SYSTEM TO IDENTIFY CHANGES ASSOCIATED WITH EXACERBATION AND TO PROVIDE SKILLED TEACHING ON MANAGEMENT OF COPD, ANA RESPIRATORY DISEASE PROCESS. [code = SKILLED NURSE FOR O/A OF RESPIRATORY SYSTEM TO IDENTIFY CHANGES ASSOCIATED WITH EXACERBATION AND TO PROVIDE SKILLED TEACHING ON MANAGEMENT OF COPD, ANA RESPIRATORY DISEASE PROCESS.] Future Scheduled Test SKILLED NU RSE FOR O/A AND SKILLED TEACHING RELATED TO SIGNS AND SYMPTOMS OF INFECTION AND INFECTION CONTROL MEASURES. [code = SKILLED NURSE FOR O/A AND SKILLED TEACHING RELATED TO SIGNS AND SYMPTOMS OF INFECTION AND INFECTION CONTROL MEASURES.] Future Scheduled Test SKILLED NU RSE TO ASSESS PATIENTS PSYCHOSOCIAL STATUS TO IDENTIFY POTENTIAL ISSUES THAT MAY COMPLICATE THE PROVISION OF THE PLAN OF CARE INCLUDING THE PATIENTS ABILITY TO ACCESS COMMUNITY RESOURCES AND PSYCHOSOCIAL SUPPORT SERVICES. [code = SKILLED NURSE TO ASSESS PATIENTS PSYCHOSOCIAL STATUS TO IDENTIFY POTENTIAL ISSUES THAT MAY COMPLICATE THE PROVISION OF THE PLAN OF CARE INCLUDING THE PATIENTS ABILITY TO ACCESS COMMUNITY RESOURCES AND PSYCHOSOCIAL SUPPORT SERVICES.] Future Scheduled Test SKILLED NU RSE FOR O/A AND SKILLED TEACHING IN MANAGEMENT OF VENOUS INSUFFICIENCY CIRCULATORY/VASCULAR DISEASE. [code = SKILLED NURSE FOR O/A AND SKILLED TEACHING IN MANAGEMENT OF VENOUS INSUFFICIENCY CIRCULATORY/VASCULAR DISEASE.] Future Scheduled Test PHYSICAL T HERAPIST TO EVALUATE PATIENT FOR STRENGTHENING [code = PHYSICAL THERAPIST TO EVALUATE PATIENT FOR STRENGTHENING ] Future Scheduled Test SKILLED NU RSE TO INSTRUCT PATIENT/CAREGIVER ON COPD TO INCLUDE TEACHING AND SELF-MANAGEMENT RELATED TO COPD DISEASE PROCESS, SIGNS AND SYMPTOMS, AND COMPLICATIONS. [code = SKILLED NURSE TO INSTRUCT PATIENT/CAREGIVER ON COPD TO INCLUDE TEACHING AND SELF-MANAGEMENT RELATED TO COPD DISEASE PROCESS, SIGNS AND SYMPTOMS, AND COMPLICATIONS.] Future Scheduled Test SKILLED NU RSE FOR O/A OF SIGNS AND SYMPTOMS OF SUBSTANCE USE. INSTRUCT PATIENT ON RELATED RISKS AND WILL NOTIFY MD NEEDED. [code = SKILLED NURSE FOR O/A OF SIGNS AND SYMPTOMS OF SUBSTANCE USE. INSTRUCT PATIENT ON RELATED RISKS AND WILL NOTIFY MD NEEDED.] Future Scheduled Test SKILLED NU RSE FOR O/A, TEACHING RELATED TO LIVER CIRRHOSIS FOR EARLY IDENTIFICATION OF EXACERBATION OF DISEASE PROCESS. [code = SKILLED NURSE FOR O/A, TEACHING RELATED TO LIVER CIRRHOSIS FOR EARLY IDENTIFICATION OF EXACERBATION OF DISEASE PROCESS.] Future Scheduled Test SKILLED NU RSE FOR O/A AND SKILLED TEACHING RELATED TO SIGNS AND SYMPTOMS AND MANAGEMENT OF FRACTURE, IMPAIRED MOBILITY, WEAKNESS, OSTEOARTHRITIS. [code = SKILLED NURSE FOR O/A AND SKILLED TEACHING RELATED TO SIGNS AND SYMPTOMS AND MANAGEMENT OF FRACTURE, IMPAIRED MOBILITY, WEAKNESS, OSTEOARTHRITIS. ] Future Scheduled Test PATIENT BANEGAS S A RISK OF HOSPITALIZATION AND ED USE. SKILLED NURSE TO ESTABLISH SUPPORT MEASURES TO MINIMIZE RISK OF HOSPITALIZATION AND ED USE, AND INSTRUCT PATIENT/CAREGIVER ON METHODS TO REDUCE AVOIDABLE HOSPITALIZATION AND ED USE. [code = PATIENT HAS A RISK OF HOSPITALIZATION AND ED USE. SKILLED NURSE TO ESTABLISH SUPPORT MEASURES TO MINIMIZE RISK OF HOSPITALIZATION AND ED USE, AND INSTRUCT PATIENT/CAREGIVER ON METHODS TO REDUCE AVOIDABLE HOSPITALIZATION AND ED USE.] Future Scheduled Test SKILLED NU RSE TO PROVIDE INSTRUCTION TO PATIENT/CAREGIVER RELATED TO DISCHARGE PLANNING. [code = SKILLED NURSE TO PROVIDE INSTRUCTION TO PATIENT/CAREGIVER RELATED TO DISCHARGE PLANNING.] Future Scheduled Test SKILLED NU RSE TO PERFORM HOME SAFETY AND FALL ASSESSMENT AND PROVIDE INSTRUCTION TO IMPLEMENT HOME SAFETY AND FALL PREVENTION STRATEGIES. [code = SKILLED NURSE TO PERFORM HOME SAFETY AND FALL ASSESSMENT AND PROVIDE INSTRUCTION TO IMPLEMENT HOME SAFETY AND FALL PREVENTION STRATEGIES.] Future Scheduled Test SKILLED NU RSE FOR OBSERVATION AND ASSESSMENT OF PATIENTS PAIN LEVEL AND EFFECTIVENESS OF PAIN MANAGEMENT REGIMEN. SKILLED NURSE TO INSTRUCT PATIENT/CAREGIVER REGARDING PHARMACOLOGIC AND NON-PHARMACOLOGIC PAIN CONTROL MEASURES. SKILLED NURSE TO REPORT TO PHYSICIAN IF PAIN IS UNCONTROLLED WITH CURRENT PAIN MANAGEMENT REGIMEN. [code = SKILLED NURSE FOR OBSERVATION AND ASSESSMENT OF PATIENTS PAIN LEVEL AND EFFECTIVENESS OF PAIN MANAGEMENT REGIMEN. SKILLED NURSE TO INSTRUCT PATIENT/CAREGIVER REGARDING PHARMACOLOGIC AND NON-PHARMACOLOGIC PAIN CONTROL MEASURES. SKILLED NURSE TO REPORT TO PHYSICIAN IF PAIN IS UNCONTROLLED WITH CURRENT PAIN MANAGEMENT REGIMEN.] Future Scheduled Test SKILLED NU RSE TO ASSESS PATIENT'S SKIN INTEGRITY AND INSTRUCT PATIENT/CAREGIVER ON MEASURES TO PREVENT PRESSURE ULCERS. [code = SKILLED NURSE TO ASSESS PATIENT'S SKIN INTEGRITY AND INSTRUCT PATIENT/CAREGIVER ON MEASURES TO PREVENT PRESSURE ULCERS.] Future Scheduled Test SKILLED NU RSE TO PROVIDE ASSESSMENT AND TEACHING/REINFORCEMENT OF MANAGEMENT OF DEPRESSION INCLUDING DISEASE PROCESS, MEDICATION MANAGEMENT, COPING SKILLS AND IDENTIFY CHANGES ASSOCIATED WITH DEPRESSIVE DISORDERS FOR EARLY INTERVENTION. [code = SKILLED NURSE TO PROVIDE ASSESSMENT AND TEACHING/REINFORCEMENT OF MANAGEMENT OF DEPRESSION INCLUDING DISEASE PROCESS, MEDICATION MANAGEMENT, COPING SKILLS AND IDENTIFY CHANGES ASSOCIATED WITH DEPRESSIVE DISORDERS FOR EARLY INTERVENTION. ] Future Scheduled Test PHYSICAL T HERAPIST TO EVALUATE PATIENT SECONDARY TO FUNCTIONAL DEFICITS/SAFETY CONCERNS. PHYSICAL THERAPY TO ESTABLISH /UPGRADE/DOWNGRADE THERAPEUTIC EXERCISE PROGRAM AND INSTRUCT PATIENT/CAREGIVER ON EXERCISE PRECAUTIONS WITH WRITTEN HOME PROGRAM. MAY INCLUDE AAROM, AROM, RROM APPROPRIATE TO IMPROVE FUNCTIONAL STRENGTH AND RANGE OF MOTION. PHYSICAL THERAPY TO INSTRUCT PATIENT/CAREGIVER ON SAFE TRANSFER TECHNIQUES USING PROPER BODY MECHANICS AND EQUIPMENT. PHYSICAL THERAPY TO INSTRUCT PATIENT/CAREGIVER ON GAIT TRAINING TECHNIQUES USING APPROPRIATE ASSISTIVE DEVICE, PROPER BODY MECHANICS TO IMPROVE MOBILITY, AND PREVENT INJURY OF PATIENT AND/OR CAREGIVER. PHYSICAL THERAPY TO ASSESS AND RECOMMEND HOME SAFETY ADAPTATIONS AND EDUCATE PATIENT /CAREGIVER ON FALL PREVENTION STRATEGIES. PHYSICAL THERAPY TO INSTRUCT PATIENT/CAREGIVER ON BALANCE AND BALANCE STRATEGIES TO IMPROVE SAFE MOBILITY AND REDUCE RISK FOR FALL AND INJURY INCLUDING PARTICIPATION IN [facility] BALANCE SPECIALTY PROGRAM SUMMARY OF THERAPY EVAL/ASSESSMENT FINDINGS AND REASON(S) SKILLS OF A THERAPIST ARE INDICATED: PATIENT WAS SEEN FOR INITIAL PHYSICAL THERAPY VISIT AND HOME SAFETY ASSESSMENT. PATIENT IS A 68-YEAR-OLD MALE WHO WAS RECENTLY PLACED ON SERVICES SECONDARY TO A PELVIC FRACTURE. PATIENT ADMITS FALLING FREQUENTLY DUE TO ALCOHOL USE. PLOF. DRIVING, USE OF QUAD CANE, IN COMMUNITY. LIVES ALONE WITH SUPPORTIVE FAMILY AND FRIENDS PATIENT HAS DECIDED TO MODIFY HIS HOME IN ORDER TO ACCOMMODATE HIS NEEDS. PATIENT MODIFYING SHOWER, HAS PLACED RAMPS IN HIS HOME FOR 1 STEP DOWN INTO THE LIVING ROOM, IS USING THE COMMODE AND NIGHT FOR FEAR OF FALLING IN THE MIDDLE OF THE EVENING TO USE THE BATHROOM. PRESENTLY PATIENT AMBULATES WITH QUAD CANE AND HIS WRONG HAND AND IS UNSTEADY AND WAS TOO HIGH. PATIENT SHOULD NOT USING ROLLING WALKER HE STATES HE DOES NOT HAVE SUFFICIENT ENOUGH ROOM AND IT IS NOT WORKING FOR HIM. ADJUSTED RW AND QUAD CANE. ROLLING WALKER WHEELS WERE TURNED INWARD AND REDUCE IN HEIGHT. PATIENT STATES MUCH MORE COMFORTABLE AND WILL BEGIN USING HIS ROLLING WALKER. RECOMMENDED WALKER TRAY WHICH PATIENT STATES THAT HE WILL PURCHASE ONLINE. TUG SCORE AND 30 SECOND [id number] INDICATE THAT PATIENT IS A FALL RISK. HOME EXERCISE PROGRAM INITIATED. WRITTEN PROGRAM PROVIDED. PATIENT DECLINES ELECTRONIC VERSION OF HOME EXERCISE PROGRAM AT THIS TIME STATING HE FEELS PAPER IS PERFECT. PATIENT IS APPROPRIATE CANDIDATE FOR SKILLED PHYSICAL THERAPY TO ADDRESS PHYSICAL IMPAIRMENTS AND FUNCTIONAL LIMITATIONS. PATIENT VERBALIZED AGREEMENT WITH PLAN OF CARE. MD NOTIFIED OF PLAN [code = PHYSICAL THERAPIST TO EVALUATE PATIENT SECONDARY TO FUNCTIONAL DEFICITS/SAFETY CONCERNS. PHYSICAL THERAPY TO ESTABLISH /UPGRADE/DOWNGRADE THERAPEUTIC EXERCISE PROGRAM AND INSTRUCT PATIENT/CAREGIVER ON EXERCISE PRECAUTIONS WITH WRITTEN HOME PROGRAM. MAY INCLUDE AAROM, AROM, RROM APPROPRIATE TO IMPROVE FUNCTIONAL STRENGTH AND RANGE OF MOTION. PHYSICAL THERAPY TO INSTRUCT PATIENT/CAREGIVER ON SAFE TRANSFER TECHNIQUES USING PROPER BODY MECHANICS AND EQUIPMENT. PHYSICAL THERAPY TO INSTRUCT PATIENT/CAREGIVER ON GAIT TRAINING TECHNIQUES USING APPROPRIATE ASSISTIVE DEVICE, PROPER BODY MECHANICS TO IMPROVE MOBILITY, AND PREVENT INJURY OF PATIENT AND/OR CAREGIVER. PHYSICAL THERAPY TO ASSESS AND RECOMMEND HOME SAFETY ADAPTATIONS AND EDUCATE PATIENT /CAREGIVER ON FALL PREVENTION STRATEGIES. PHYSICAL THERAPY TO INSTRUCT PATIENT/CAREGIVER ON BALANCE AND BALANCE STRATEGIES TO IMPROVE SAFE MOBILITY AND REDUCE RISK FOR FALL AND INJURY INCLUDING PARTICIPATION IN [facility] BALANCE SPECIALTY PROGRAM SUMMARY OF THERAPY EVAL/ASSESSMENT FINDINGS AND REASON(S) SKILLS OF A THERAPIST ARE INDICATED: PATIENT WAS SEEN FOR INITIAL PHYSICAL THERAPY VISIT AND HOME SAFETY ASSESSMENT. PATIENT IS A 68-YEAR-OLD MALE WHO WAS RECENTLY PLACED ON SERVICES SECONDARY TO A PELVIC FRACTURE. PATIENT ADMITS FALLING FREQUENTLY DUE TO ALCOHOL USE. PLOF. DRIVING, USE OF QUAD CANE, IN COMMUNITY. LIVES ALONE WITH SUPPORTIVE FAMILY AND FRIENDS PATIENT HAS DECIDED TO MODIFY HIS HOME IN ORDER TO ACCOMMODATE HIS NEEDS. PATIENT MODIFYING SHOWER, HAS PLACED RAMPS IN HIS HOME FOR 1 STEP DOWN INTO THE LIVING ROOM, IS USING THE COMMODE AND NIGHT FOR FEAR OF FALLING IN THE MIDDLE OF THE EVENING TO USE THE BATHROOM. PRESENTLY PATIENT AMBULATES WITH QUAD CANE AND HIS WRONG HAND AND IS UNSTEADY AND WAS TOO HIGH. PATIENT SHOULD NOT USING ROLLING WALKER HE STATES HE DOES NOT HAVE SUFFICIENT ENOUGH ROOM AND IT IS NOT WORKING FOR HIM. ADJUSTED RW AND QUAD CANE. ROLLING WALKER WHEELS WERE TURNED INWARD AND REDUCE IN HEIGHT. PATIENT STATES MUCH MORE COMFORTABLE AND WILL BEGIN USING HIS ROLLING WALKER. RECOMMENDED WALKER TRAY WHICH PATIENT STATES THAT HE WILL PURCHASE ONLINE. TUG SCORE AND 30 SECOND [id number] INDICATE THAT PATIENT IS A FALL RISK. HOME EXERCISE PROGRAM INITIATED. WRITTEN PROGRAM PROVIDED. PATIENT DECLINES ELECTRONIC VERSION OF HOME EXERCISE PROGRAM AT THIS TIME STATING HE FEELS PAPER IS PERFECT. PATIENT IS APPROPRIATE CANDIDATE FOR SKILLED PHYSICAL THERAPY TO ADDRESS PHYSICAL IMPAIRMENTS AND FUNCTIONAL LIMITATIONS. PATIENT VERBALIZED AGREEMENT WITH PLAN OF CARE. MD NOTIFIED OF PLAN] Future Scheduled Test OCCUPATION AL THERAPIST TO EVALUATE PATIENT SECONDARY TO FUNCTIONAL DEFICITS/SAFETY CONCERNS IDENTIFIED DURING EVALUATION OCCUPATIONAL THERAPY TO ESTABLISH /UPGRADE/DOWNGRADE THERAPEUTIC EXERCISE PROGRAM AND INSTRUCT PATIENT/CAREGIVER ON EXERCISE PRECAUTIONS WITH WRITTEN HOME PROGRAM. MAY INCLUDE PROM, AAROM, AROM, RROM APPROPRIATE TO IMPROVE FUNCTIONAL STRENGTH AND/OR RANGE OF MOTION. OCCUPATIONAL THERAPY TO INSTRUCT PATIENT/CAREGIVER ON EXERCISES AND STRATEGIES INCLUDING PELVIC FLOOR EXERCISES TO IMPROVE INCONTINENCE THROUGH PARTICIPATION IN [facility] FOR CONTROL SPECIALTY PROGRAM SUMMARY OF THERAPY EVAL/ASSESSMENT FINDINGS AND REASON(S) SKILLS OF A THERAPIST ARE INDICATED: THIS IS A 68 YO M ADMIT TO THIS AGENCY S/P HOSPITAIZATION SECONDARY TO GROUND LEVEL FALL AND STC AT [facility]. PT HAS A PMH SIGNIFICANT FOR: DVT/PE S/P IVC FILTER, ETOH DEPENDENCE, ALCOHOLIC LIVER CIRRHOSIS, PORTAL HTN, COPD, OA, DJD, CHRONIC PAIN SYNDROME, GENERALIZE ANXIETY DISORDER, DEPRESSION, PROSTATE CA S/P RADICAL PROSTATECTOMY. PT LIVES IN A TWO STORY HOME WITH ONE STEP TO GET INTO THE HOUSE, RAMPS BETWEEN LANDINGS WITHIN THE FIRST FLOOR, LOWER LEVEL BATHROOM INSTALLATION IN PROGRESS WITH CURRENT TOILET USAGE, HOSPITAL BED AND RECLINING CHAIR ON FIRST FLOOR, 16 STEPS WITH 1/[address] HANDRAILS AND REMAINING LOWER HALF RIGHT SIDED HANDRAIL. PT HAS A WALK IN SHOWER WITH SHOWER CHAIR AND STATES THAT HE WOULD PREFER TO SHOWER WITH CAREGIVER. PT STATES HE HAS TWO CAREGIVERS THAT COME AND ASSIST WITH ADL SUP AND IADL COMPLETION FOR APPROXIMATELY 6-8 HOURS PER DAY. USABLE BATHROOM IS UPSTAIRS. [code = OCCUPATIONAL THERAPIST TO EVALUATE PATIENT SECONDARY TO FUNCTIONAL DEFICITS/SAFETY CONCERNS IDENTIFIED DURING EVALUATION OCCUPATIONAL THERAPY TO ESTABLISH /UPGRADE/DOWNGRADE THERAPEUTIC EXERCISE PROGRAM AND INSTRUCT PATIENT/CAREGIVER ON EXERCISE PRECAUTIONS WITH WRITTEN HOME PROGRAM. MAY INCLUDE PROM, AAROM, AROM, RROM APPROPRIATE TO IMPROVE FUNCTIONAL STRENGTH AND/OR RANGE OF MOTION. OCCUPATIONAL THERAPY TO INSTRUCT PATIENT/CAREGIVER ON EXERCISES AND STRATEGIES INCLUDING PELVIC FLOOR EXERCISES TO IMPROVE INCONTINENCE THROUGH PARTICIPATION IN [facility] FOR CONTROL SPECIALTY PROGRAM SUMMARY OF THERAPY EVAL/ASSESSMENT FINDINGS AND REASON(S) SKILLS OF A THERAPIST ARE INDICATED: THIS IS A 68 YO M ADMIT TO THIS AGENCY S/P HOSPITAIZATION SECONDARY TO GROUND LEVEL FALL AND STC AT [facility]. PT HAS A PMH SIGNIFICANT FOR: DVT/PE S/P IVC FILTER, ETOH DEPENDENCE, ALCOHOLIC LIVER CIRRHOSIS, PORTAL HTN, COPD, OA, DJD, CHRONIC PAIN SYNDROME, GENERALIZE ANXIETY DISORDER, DEPRESSION, PROSTATE CA S/P RADICAL PROSTATECTOMY. PT LIVES IN A TWO STORY HOME WITH ONE STEP TO GET INTO THE HOUSE, RAMPS BETWEEN LANDINGS WITHIN THE FIRST FLOOR, LOWER LEVEL BATHROOM INSTALLATION IN PROGRESS WITH CURRENT TOILET USAGE, HOSPITAL BED AND RECLINING CHAIR ON FIRST FLOOR, 16 STEPS WITH 1/[address] B[address] HANDRAILS AND REMAINING LOWER HALF RIGHT SIDED HANDRAIL. PT HAS A WALK IN SHOWER WITH SHOWER CHAIR AND STATES THAT HE WOULD PREFER TO SHOWER WITH CAREGIVER. PT STATES HE HAS TWO CAREGIVERS THAT COME AND ASSIST WITH ADL SUP AND IADL COMPLETION FOR APPROXIMATELY 6-8 HOURS PER DAY. USABLE BATHROOM IS UPSTAIRS. ] Goal 2024-03-01 Patient Goal - T O BE ABLE TO BE MORE INDEPENDENT AND FOR PAIN TO IMPROVE. TO REMAIN FREE FROM FALLS, INFECTION AND HOSPITALIZATION Goal 2024-04-05 Patient Goal - T O BE ABLE TO BE MORE INDEPENDENT AND FOR PAIN TO IMPROVE. TO REMAIN FREE FROM FALLS, INFECTION AND HOSPITALIZATION Goal Provider Goal - A PLAN OF CARE WILL BE ESTABLISHED THAT MEETS PATIENT'S SENIOR LIVING NEEDS AND INCLUDES PATIENT GOAL FOR HOME HEALTH. Goal Provider Goal - PATIENT/CAREGIVER WILL VERBALIZE UNDERSTANDING OF EDUCATION PROVIDED ON MEDICATIONS BY THE END OF THE CERTIFICATION PERIOD. Goal Provider Goal - SYMPTOMS OF ANXIETY ARE IDENTIFIED AND INTERVENTIONS INITIATED TO ENABLE PATIENT TO UNDERSTAND AND MANAGE FEELINGS THROUGHOUT EPISODE. Goal Provider Goal - PATIENT/CAREGIVER WILL DEMONSTRATE ABILITY TO SELF MANAGE NEEDS RELATED TO NUTRITION/HYDRATION THROUGHOUT THE EPISODE. Goal Provider Goal - PATIENT/CAREGIVER WILL DEMONSTRATE ABILITY TO ADMINSITER ENTERAL NUTRITION, VERBALIZE METHODS TO PREVENT ASPIRATION AND PERFORM SITE CARE. PATIENT/CAREGIVER WILL REPORT COMPLICATIONS TO SKILLED NURSE /PHYSICIAN. Goal Provider Goal - EXACERBATIONS OF DYSPHAGIA GASTROINTESTINAL DISEASE WILL BE PROMPTLY IDENTIFIED AND INTERVENTIONS IMPLEMENTED TO MINIMIZE RISKS TO PATIENT BY END OF EPISODE. Goal Provider Goal - OCCUPATIONAL THERAPY EVALUATION TO BE COMPLETED WITH RECOMMENDATIONS AND WRITTEN PLAN OF TREATMENT ESTABLISHED FOR THE PHYSICIANS SIGNATURE. Goal Provider Goal - PATIENT/CAREGIVER WILL VERBALIZE/DEMONSTRATE MANAGEMENT OF COPD, ANA RESPIRATORY DISEASE PROCESS. CHANGES IN RESPIRATORY STATUS WILL BE IDENTIFIED AND REPORTED TO PHYSICIAN FOR PROMPT INTERVENTION THROUGHOUT THE CERTIFICATION PERIOD. Goal Provider Goal - PATIENT/CAREGIVER WILL VERBALIZE/DEMONSTRATE UNDERSTANDING OF S/S OF INFECTION AND INFECTION CONTROL MEASURES. SIGNS AND SYMPTOMS OF INFECTION WILL BE IDENTIFIED AND PHYSICIAN NOTIFIED FOR PROMPT INTERVENTION THROUGHOUT THE CERTIFICATION PERIOD. Goal Provider Goal - CHANGES IN PSYCHOSOCIAL STATUS WILL BE IDENTIFIED AND PLAN IMPLEMENTED TO MINIMIZE PATIENT RISKS THROUGHOUT THE CERTIFICATION PERIOD. Goal Provider Goal - PATIENT/CAREGIVER WILL VERBALIZE/DEMONSTRATE THE ABILITY TO MANAGE VENOUS INSUFFICIENCY CIRCULATORY DISEASE PROCESS AND EXACERBATIONS WILL BE IDENTIFIED FOR EARLY INTERVENTION THROUGHOUT THE CERTIFICATION PERIOD. Goal Provider Goal - A PHYSICAL THERAPY EVALUATION TO BE COMPLETED WITH RECOMMENDATIONS AND/OR WRITTEN PLAN OF TREATMENT ESTABLISHED FOR PHYSICIANS SIGNATURE. Goal Provider Goal - PATIENT/CAREGIVER WILL VERBALIZE/DEMONSTRATE KNOWLEDGE AND MANAGEMENT OF COPD BY END OF EPISODE. Goal Provider Goal - PATIENT WILL REMAIN SAFE IN COMMUNITY AND WILL ACKNOWLEDGE RELATED RISKS OF SUBSTANCE USE THROUGHOUT CERTIFICATION PERIOD. Goal Provider Goal - EXACERBATIONS OF LIVER CIRRHOSIS LIVER DISEASE WILL BE PROMPTLY IDENTIFIED AND INTERVENTIONS IMPLEMENTED TO MINIZMIZE RISKS TO PATIENT BY END OF THE EPISODE. Goal Provider Goal - PATIENT/CAREGIVER WILL VERBALIZE UNDERSTANDING OF FRACTURE, IMPAIRED MOBILITY, WEAKNESS, OSTEOARTHRITIS MUSCULOSKELETAL DISEASE INCLUDING SIGNS AND SYMPTOMS, MANAGEMENT, AND PRESCRIBED TREATMENT REGIMEN BY END OF EPISODE. Goal Provider Goal - PATIENT WILL HAVE SUPPORT MEASURES ESTABLISHED TO PREVENT HOSPITALIZATION AND ED USE AND PATIENT/CAREGIVER WILL VERBALIZE/DEMONSTRATE METHODS TO REDUCE AVOIDABLE HOSPITALIZATION AND ED USE BY END OF EPISODE. Goal Provider Goal - PATIENT/CAREGIVER WILL VERBALIZE UNDERSTANDING OF DISCHARGE PLANNING INSTRUCTIONS BY DATE OF DISCHARGE. Goal Provider Goal - PATIENT/CAREGIVER WILL VERBALIZE/DEMONSTRATE EFFECTIVE HOME SAFETY AND FALL PREVENTION STRATEGIES THROUGHOUT CERTIFICATION PERIOD. Goal Provider Goal - PATIENT/CAREGIVER WILL DEMONSTRATE UNDERSTANDING OF PHARMACOLOGIC AND NONPHARMACOLOGIC PAIN CONTROL MEASURES AND PATIENT WILL HAVE IMPROVEMENT IN PAIN INTERFERING WITH ACTIVITY EVIDENCED BY PAIN CONTROLLED AT LEVEL OF 5(SPECIFY PATIENT GOAL ON 0-10 PAIN SCALE) OR LESS BY END OF CERTIFICATION PERIOD. Goal Provider Goal - PATIENT/CAREGIVER WILL VERBALIZE UNDERSTANDING OF PRESSURE ULCER PREVENTION BY END OF THE EPISODE. Goal Provider Goal - PATIENT/CAREGIVER WILL VERBALIZE/DEMONSTRATE UNDERSTANDING OF THE MANAGEMENT OF DEPRESSION THROUGHOUT THE CERTIFICATION PERIOD AND SYMPTOMS ARE IDENTIFIED AND MANAGED TO MAINTAIN PATIENT SAFETY IN THE HOME. Goal Provider Goal - PHYSICAL THERAPY EVALUATION TO BE COMPLETED WITH RECOMMENDATIONS AND/OR WRITTEN TREATMENT PLAN OF CARE ESTABLISHED FOR THE PHYSICIANS SIGNATURE PATIENT/CAREGIVER WILL PERFORM THERAPEUTIC EXERCISE/S AND DEMONSTRATE PARTICIPATION IN A HOME PROGRAM TO IMPROVE FUNCTION. ONGOING PATIENT/CAREGIVER WILL DEMONSTRATE SAFE TRANSFERS USING APPROPRIATE ASSISTIVE DEVICE, BODY MECHANICS AND EQUIPMENT TO IMPROVE FUNCTIONAL TRANSFERS SAFELY IN HOME INDEPENDENTLY BY 5TH VISIT. PATIENT/CAREGIVER WILL DEMONSTRATE IMPROVED GAIT TECHNIQUES TO MINIMIZE RISK OF INJURY AND INCREASE FUNCTIONAL AMBULATION TO EXIT HOME TO ACCESS FOR MEDICAL APPOINTMENTS BY SIXTH VISIT PATIENT/CAREGIVER WILL DEMONSTRATE/VERBALIZE UNDERSTANDING OF RECOMMENDATIONS TO INCREASE SAFETY IN THE HOME AND FALL PREVENTION TO IMPROVE FUNCTION. NO FALLS ONGOING PATIENT/CAREGIVER WILL DEMONSTRATE IMPROVED BALANCE AND REDUCE THE RISK OF FALLS AND INJURY TO IMPROVE FUNCTION. ONGOING Goal Provider Goal - OCCUPATIONAL THERAPIST TO EVALUATE PATIENT SECONDARY TO FUNCTIONAL DEFICITS/SAFETY CONCERNS IDENTIFIED DURING EVALUATION. PATIENT/CAREGIVER WILL PERFORM THERAPEUTIC EXERCISE/S AND DEMONSTRATE PARTICIPATION IN A HOME PROGRAM TO IMPROVE FUNCTION OF SELF CARE TASK COMPLETION. PATIENT/CAREGIVER WILL DEMONSTRATE UNDERSTANDING OF STRATEGIES AND EXERCISES TO IMPROVE URINARY INCONTINENCE TO IMPROVE FUNCTION OF PRVENTION OF UTI AND INCREASED PELVIC FLOOR HEALTH. Reason for Visit MINIMUM ASSIST WITH TRANSFER/AMBULATION/ADLS Encounters Start Date/Time End Date/Time Encounter Type Admission Type Attending [facility] Care Department Encounter ID Discharge Date Discharge Status Discharge Condition Discharge Reason Percent Goals Met 2024-02-08 00:00:00 2024-04-05 00:00:00 Outpatient [facility] [id number] 2024-04-05 00:00:00 DISCHARGE TO HOME OR SELF CARE MINIMUM ASSIST WITH TRANSFER/A MBULATION/ ADLS GOALS MET ( ONLY) 91.04
--- OUTSIDE RECORDS SUMMARY | 2024-11-27 11:45 | XMS_ITS ---
Author Name [facility] Organization Unknown Results Test Name/Text Value Interpretation Date Range Source TIBC SerPl-mCnc 434mcg/dL Normal [id number] 250 - 450 [facility] UIBC SerPl-mCnc 337mcg/dL Normal [id number] 155 - 355 [facility] Iron SerPl-mCnc 97mcg/dL Normal [id number] 49 - 181 [facility] Iron Satn MFr SerPl 22% Normal [id number] 20 - 45 [facility] Hgb Bld-mCnc 16.4g/dL Normal [id number] 13.5 - 18 [facility] Eosinophil # Bld Auto 0.3K/mcL Normal [id number] 0 - 0 .5 [facility] MCHC RBC Auto-mCnc 33.6g/dL Normal [id number] 32 - 36 [facility] PMV Bld Auto 9.4FL Normal [id number] 7.4 - 11.4 [facility] Basophils/leuk NFr Bld Auto 2.3% Above high normal [id number] 0 - 2 [facility] Monocytes/leuk NFr Bld Auto 9.7% Normal [id number] 2 - 12 [facility] RDW RBC Auto-Rto 15.9% Normal [id number] 12.1 - 17. 7 [facility] Monocytes # Bld Auto 0.6K/mcL Normal [id number] 0 - 0. 8 [facility] Basophils # Bld Auto 0.1K/mcL Normal [id number] 0 - 0. 2 [facility] Neutrophils # Bld Auto 3.6K/mcL Normal [id number] 1.8 - 7.8 [facility] Hct VFr Bld Auto 48.9% Normal [id number] 40 - 54 [facility] Lymphocytes/leuk NFr Bld Auto 23.3% Normal [id number] 20 - 48 [facility] Lymphocytes # Bld Auto 1.4K/mcL Normal [id number] 1 - 3.2 [facility] RBC # Bld Auto 5.02M/mcL Normal [id number] 4.7 - 6 CT [facility] Neutrophils/leuk NFr Bld Auto 59.2% Normal [id number] 44 - 74 [facility] Eosinophil/leuk NFr Bld Auto 5.5% Normal [id number] 0 - 6 [facility] WBC # Bld Auto 6K/mcL Normal [id number] 4 - 10.5 CT [facility] MCV RBC Auto 97.3FL Normal [id number] 78 - 100 [facility] MCH RBC Qn Auto 32.7pcg Normal [id number] 25 - 33 [facility] Platelet # Bld Auto 180K/mcL Normal [id number] 150 - 4 50 [facility] CREAT SERPL MCNC 0.6mg/dL Below low normal [id number] 0.7 - 1.3 [facility] CALCIUM SERPL MCNC 10.1mg/dL Normal [id number] 8.4 - 10 .2 [facility] SODIUM SERPL SCNC 141mmol/L Normal [id number] 135 - 145 [facility] ANION GAP SERPL SCNC 9mmol/L Normal [id number] 5 - 14 [facility] Glomerular filtration rate/1.73 sq M. predicted 106 Normal 60 - [facility] HCO3 SER SCNC 32mmol/L Normal [id number] 24 - 32 [facility] GLUCOSE SERPL MCNC 74mg/dL Normal [id number] 70 - 199 [facility] BUN SERPL [facility]NC 15mg/dL Normal [id number] 9 - 20 [facility] CHLORIDE SERPL SCNC 100mmol/L Normal [id number] 98 - 10 7 [facility] POTASSIUM SERPL SCNC 4.8mmol/L Normal [id number] 3.5 - 5.1 [facility] HEMOCULT STL QL NEGATIVE Normal [id number] - C [facility] DIFFERENTIAL TYPE AUTOMATED Normal [facility] NEUTROPHILS NFR BLD AUTO 66% Normal [id number] 44 - 74 [facility] BASOPHILS NFR BLD AUTO 1.2% Normal [id number] 0 - 2 [facility] MONOCYTES NFR BLD AUTO 8.6% Normal [id number] 2 - 12 [facility] HCT VFR BLD AUTO 46.5% Normal [id number] 40 - 54 [facility] MONOCYTES NO. BLD AUTO 0.8K/uL Normal [id number] 0 - 0.8 [facility] RDW RBC AUTO RTO 15.2% Normal [id number] 12.1 - 17. 7 [facility] PLATELET NO. BLD AUTO 257K/uL Normal [id number] 150 - 450 [facility] EOSINOPHIL NO. BLD AUTO 0.3K/uL Normal [id number] 0 - 0.5 [facility] RBC NO. BLD AUTO 4.87M/uL Normal [id number] 4.7 - 6 [facility] MCH RBC QN AUTO 32.3pg Normal [id number] 25 - 33 [facility] MCHC RBC AUTO MCNC 33.8g/dL Normal [id number] 32 - 36 [facility] HGB BLD MCNC 15.7g/dL Normal [id number] 13.5 - 18 [facility] BASOPHILS IN BLOOD BY AUTOMATED COUNT 0.1K/uL Normal [id number] 0 - 0.2 [facility] WBC NO. BLD AUTO 9.6K/uL Normal [id number] 4 - 10.5 [facility] EOSINOPHIL NFR BLD AUTO 2.8% Normal [id number] 0 - 6 [facility] LYMPHOCYTES NFR BLD AUTO 21.4% Normal [id number] 20 - 48 [facility] MCV RBC AUTO 95.5fL Normal [id number] 78 - 100 [facility] NEUTROPHILS NO. BLD AUTO 6.4K/uL Normal [id number] 1.8 - 7.8 [facility] LYMPHOCYTES NO. BLD AUTO 2.1K/uL Normal [id number] 1 - 3.2 [facility] PMV BLD AUTO 9.6fL Normal [id number] 7.4 - 11.4 [facility] History of Medication Use Medication Directions Dispensed Refills Start Date End Date Stat LORazepam (ATIVAN) 1 mg tablet Take 1 tablet (1 mg total) by mouth 2 (two) times a day. Max Daily Amount: 2 mg 10/19/2024 active oxyCODONE (ROXICODONE) 30 mg immediate release tablet Take 1 tablet (30 mg total) by mouth every 4 (four) hours if needed for severe pain. 10/18/2024 aborted fentaNYL (DURAGESIC) 75 mcg/hr Place 2 patches on the skin every 3rd (third) day. 10/18/2024 aborted pyridoxine (B-6) 50 mg tablet Take 1 tablet (50 mg total) by mouth daily. 10/14/2024 9 active HYDROmorphone (DILAUDID) 1 mg/mL liquid 8 mg every 3 hours as needed Partial fill allowed 10/14/2024 active apixaban (ELIQUIS) 5 mg tablet Take 1 tablet (5 mg total) by mouth every 12 (twelve) hours. 10/14/2024 9 active buPROPion (WELLBUTRIN) 75 mg tablet TAKE 1 TABLET BY MOUTH TWICE A DAY 10/14/2024 9 active sertraline (ZOLOFT) 100 mg tablet TAKE 1 TABLET BY MOUTH EVERY DAY 10/14/2024 9 active fluticasone HFA (FLOVENT HFA) 44 mcg/actuation inhaler Inhale 1 puff into the lungs 2 (two) times a day. 10/14/2024 9 active multivitamin tablet Take by mouth. 10/14 active furosemide (LASIX) 20 mg tablet TAKE 1 TABLET BY MOUTH EVERY DAY 10/14/2024 9 active nicotine (NICODERM CQ) 21 mg/[address] 1 patch onto the skin daily. 10/14/2024 9 active LORazepam (ATIVAN INTENSOL) 2 mg/mL concentrated solution Take 0.5 mL (1 mg total) by mouth every 8 (eight) hours as needed. 10/14/2024 9 active HYDROmorphone (DILAUDID) 8 mg tablet Take 1 tablet (8 mg total) by mouth every 3 (three) hours as needed for pain. Partial fill allowed 10/14/2024 9 active fentaNYL (DURAGESIC) 100 mcg/hr Place 1 patch onto the skin every third day. 10/14/2024 9 active busPIRone (BUSPAR) 10 mg tablet TAKE 1 TABLET BY MOUTH TWICE A DAY 10/14/2024 active LORazepam (ATIVAN) 1 mg tablet Take 1 tablet (1 mg total) by mouth 2 (two) times a day as needed for anxiety. 10/14/2024 9 active spironolactone (ALDACTONE) 50 mg tablet Take 1 tablet (50 mg total) by mouth daily. 10/14/2024 9 active fentaNYL (DURAGESIC) 75 MCG/HR Place 2 patches onto the skin every third day. Dose increase for cancer patient with poorly controlled pain 08/11/2024 active Klor-Con M20 20 MEQ tablet TAKE 1 TABLET BY MOUTH EVERY DAY 08/11/2024 active busPIRone (BUSPAR) 10 MG tablet Take 0.5 tablets (5 mg total) by mouth 2 (two) times a day. 04/14/2024 active oxyCODONE (ROXICODONE) 30 MG immediate release tablet Take 1 tablet (30 mg total) by mouth every 4 (four) hours as needed for pain. Partial fill allowed, cancer patient with poorly controlled pain, shortage of hydromorphone 04/14/2024 active oxyCODONE (ROXICODONE) 30 MG immediate release tablet Take 1 tablet (30 mg total) by mouth every 4 (four) hours as needed for pain. Partial fill allowed, cancer patient with poorly controlled pain, shortage of hydromorphone 03/29/2024 active Nutritional Supplements (ISOSOURCE HN PO) Take 8.45 oz by mouth 4 (four) times a day. 03/29/2024 active Barium Sulfate (VARIBAR NECTAR) 40 % suspension 20 mL 20 mL, Oral, IMG once as needed, contrast, Starting on Tue03/21/24 at 1136, For 1 dose 03/28/2024 completed folic acid (FOLVITE) tablet 1 mg Take 1 tablet (1 mg total) by mouth daily. 03/28/2024 aborted Barium Sulfate (VARIBAR THIN LIQUID) 40 % suspension 2-20 mL 2-20 mL, Oral, IMG once as needed, contrast, Starting on Tue03/21/24 at 1136, For 1 dose 03/28/2024 completed hydrOXYzine (ATARAX) 25 MG tablet Take 1 tablet (25 mg total) by mouth as needed for itching. 03/28/2024 aborted hydrOXYzine (ATARAX) 25 MG tablet Take 1 tablet (25 mg total) by mouth as needed for itching. 03/24/2024 aborted folic acid (FOLVITE) tablet 1 mg Take 1 tablet (1 mg total) by mouth daily. 03/24/2024 active Nutritional Supplements (ISOSOURCE HN PO) Take 8.45 oz by mouth 4 (four) times a day. 03/24/2024 active Multiple Vitamin (Therems) TABS Take by mouth. 03/15/2024 active divalproex (DEPAKOTE SPRINKLE) 125 MG capsule Take 3 capsules (375 mg total) by mouth daily. 03/15/2024 active pyridoxine (B-6) 50 MG tablet Take 1 tablet (50 mg total) by mouth daily. 03/15/2024 active melatonin 3 MG TABS tablet Take 1 tablet (3 mg total) by mouth every night at bedtime. 03/15/2024 active atomoxetine (STRATTERA) 40 MG capsule Take 1 capsule (40 mg total) by mouth 2 (two) times a day. 03/15/2024 active rifAXIMin (XIFAXAN) 550 MG TABS tablet Take 1 tablet (550 mg total) by mouth 2 (two) times a day. 03/15/2024 active folic acid (FOLVITE) 400 MCG tablet Take 1 tablet (400 mcg total) by mouth daily. 03/15/2024 active tiotropium (SPIRIVA) [address] 1 capsule (18 mcg total) into inhaler and inhale daily. 03/15/2024 active LORazepam (ATIVAN) 1 MG tablet Take 1 tablet (1 mg total) by mouth 2 (two) times a day as needed for anxiety. 03/15/2024 active thiamine (VITAMIN B-1) 100 MG tablet Take 1 tablet (100 mg total) by mouth daily. 03/15/2024 active acetaminophen (TYLENOL) 325 MG tablet Take 2 tablets (650 mg total) by mouth every 6 (six) hours as needed. 03/15/2024 active furosemide (LASIX) 20 MG tablet Take 1 tablet (20 mg total) by mouth daily as needed. 03/15/2024 active fluticasone (FLOVENT HFA) 44 MCG/ACT inhaler Inhale 1 puff into the lungs 2 (two) times a day. 03/15/2024 active potassium chloride ER (K-DUR,KLOR-CON) tablet 20 mEq Take 1 tablet (20 mEq total) by mouth daily. 03/15/2024 active sertraline (ZOLOFT) 25 MG tablet Take 1 tablet (25 mg total) by mouth daily. 03/15/2024 active TRAZODONE HCL PO Take 25 mg by mouth 2 (two) times a day as needed for anxiety. 03/15/2024 active fentaNYL (DURAGESIC) 100 MCG/HR Apply 1 patch topically every third day. 03/15/2024 active lactulose (CEPHULAC) 20 GM/30ML solution Take 30 mL (20 g total) by mouth 3 (three) times a day. 03/15/2024 active spironolactone (ALDACTONE) tablet 25 mg Take 1 tablet (25 mg total) by mouth daily. 03/15/2024 active hydrOXYzine (ATARAX) 25 MG tablet TAKE 1 TABLET BY MOUTH EVERY NIGHT AT BEDTIME FOR ITCHING 03/15/2024 active HYDROmorphone (Dilaudid) 8 MG tablet Take 1 tablet (8 mg total) by mouth every 4 (four) hours as needed for pain. Partial fill allowed 03/15/2024 active thiamine (VITAMIN B-1) 100 MG tablet Take 1 tablet (100 mg total) by mouth daily. 03/09/2024 active atomoxetine (STRATTERA) 40 MG capsule Take 1 capsule (40 mg total) by mouth 2 (two) times a day. 03/09/2024 active sertraline (ZOLOFT) 25 MG tablet Take 1 tablet (25 mg total) by mouth daily. 03/09/2024 active acetaminophen (TYLENOL) 325 MG tablet Take 2 tablets (650 mg total) by mouth every 6 (six) hours as needed. 03/09/2024 active divalproex (DEPAKOTE SPRINKLE) 125 MG capsule Take 3 capsules (375 mg total) by mouth daily. 03/09/2024 active TRAZODONE HCL PO Take 25 mg by mouth 2 (two) times a day as needed for anxiety. 03/09/2024 active melatonin 3 MG TABS tablet Take 1 tablet (3 mg total) by mouth every night at bedtime. 03/09/2024 active hydrOXYzine (ATARAX) 25 MG tablet TAKE 1 TABLET BY MOUTH EVERY NIGHT AT BEDTIME FOR ITCHING 03/09/2024 active tiotropium (SPIRIVA) [address] 1 capsule (18 mcg total) into inhaler and inhale daily. 03/09/2024 active divalproex (DEPAKOTE SPRINKLE) 125 MG capsule Take 3 capsules (375 mg total) by mouth daily. 03/04/2024 active thiamine (VITAMIN B-1) 100 MG tablet Take 1 tablet (100 mg total) by mouth daily. 03/04/2024 active potassium chloride ER (K-DUR,KLOR-CON) tablet 20 mEq Take 1 tablet (20 mEq total) by mouth daily. 03/04/2024 active tiotropium (SPIRIVA) [address] 1 capsule (18 mcg total) into inhaler and inhale daily. 03/04/2024 active furosemide (LASIX) 20 MG tablet Take 1 tablet (20 mg total) by mouth daily as needed. 03/04/2024 active sertraline (ZOLOFT) 25 MG tablet Take 1 tablet (25 mg total) by mouth daily. 03/04/2024 active fentaNYL (DURAGESIC) 100 MCG/HR Apply 1 patch topically every third day. 03/04/2024 active pyridoxine (B-6) 50 MG tablet Take 1 tablet (50 mg total) by mouth daily. 03/04/2024 active HYDROmorphone (DILAUDID) tablet 2 mg 2 mg, Per G Tube, Once, On [place] 03/01/24 at 2215, For 1 dose 03/04/2024 completed spironolactone (ALDACTONE) tablet 25 mg Take 1 tablet (25 mg total) by mouth daily. 03/04/2024 active hydrOXYzine (ATARAX) 25 MG tablet TAKE 1 TABLET BY MOUTH EVERY NIGHT AT BEDTIME FOR ITCHING 03/04/2024 active TRAZODONE HCL PO Take 25 mg by mouth 2 (two) times a day as needed for anxiety. 03/04/2024 active LORazepam (ATIVAN) 1 MG tablet Take 1 tablet (1 mg total) by mouth 2 (two) times a day as needed for anxiety. 03/04/2024 active fluticasone (FLOVENT HFA) 44 MCG/ACT inhaler Inhale 1 puff into the lungs 2 (two) times a day. 03/04/2024 active atomoxetine (STRATTERA) 40 MG capsule Take 1 capsule (40 mg total) by mouth 2 (two) times a day. 03/04/2024 active folic acid (FOLVITE) 400 MCG tablet Take 1 tablet (400 mcg total) by mouth daily. 03/04/2024 active HYDROmorphone (Dilaudid) 8 MG tablet Take 1 tablet (8 mg total) by mouth every 4 (four) hours as needed for pain. Partial fill allowed 03/04/2024 active Multiple Vitamin (Therems) TABS Take by mouth. 03/04/2024 active lactulose (CEPHULAC) 20 GM/30ML solution Take 30 mL (20 g total) by mouth 3 (three) times a day. 03/04/2024 active rifAXIMin (XIFAXAN) 550 MG TABS tablet Take 1 tablet (550 mg total) by mouth 2 (two) times a day. 03/04/2024 active melatonin 3 MG TABS tablet Take 1 tablet (3 mg total) by mouth every night at bedtime. 03/04/2024 active acetaminophen (TYLENOL) 325 MG tablet Take 2 tablets (650 mg total) by mouth every 6 (six) hours as needed. 03/04/2024 active traMADol (ULTRAM) 50 MG tablet Take 50 mg by mouth every 6 (six) hours as needed for pain. 02/16/2024 active potassium chloride ER (K-DUR,KLOR-CON) tablet 20 mEq Take 1 tablet (20 mEq total) by mouth daily. 02/16/2024 active spironolactone (ALDACTONE) tablet 25 mg Take 1 tablet (25 mg total) by mouth daily. 02/16/2024 active buPROPion (WELLBUTRIN) 75 MG tablet Take 1 tablet (75 mg total) by mouth 2 (two) times a day. 10/15/2023 active lactulose (CEPHULAC) 20 GM/30ML solution Take 30 mL (20 g total) by mouth 3 (three) times a day. Goal is for at least 2-3 BM's per day. 10/15/2023 active LORazepam (ATIVAN) 1 MG tablet Take 1 tablet (1 mg total) by mouth 2 (two) times a day as needed for anxiety. 10/15/2023 active fentaNYL (DURAGESIC) 100 MCG/HR Place 1 patch onto the skin every third day. 10/15/2023 active HYDROmorphone (Dilaudid) 8 MG tablet Take 1 tablet (8 mg total) by mouth every 3 (three) hours as needed for pain. Cancer patient with poorly controlled pain partial fill allowed 10/15/2023 active spironolactone (ALDACTONE) tablet 50 mg Take 1 tablet (50 mg total) by mouth daily. 10/15/2023 active fluticasone (FLOVENT HFA) 44 MCG/ACT inhaler Inhale 1 puff into the lungs 2 (two) times a day. 10/15/2023 active furosemide (LASIX) 20 MG tablet TAKE 1 TABLET BY MOUTH EVERY DAY 10/15/2023 active Thiamine Mononitrate (B1) 100 MG TABS Take 1 tablet by mouth daily. 10/15/2023 active nicotine (NICODERM CQ) 21 MG/24HR Place 1 patch onto the skin daily. 10/15/2023 active fluticasone (FLOVENT HFA) 44 MCG/ACT inhaler Inhale 1 puff into the lungs 2 (two) times a day. 10/15/2023 active furosemide (LASIX) 20 MG tablet TAKE 1 TABLET BY MOUTH EVERY DAY 10/15/2023 active busPIRone (BUSPAR) 10 MG tablet Take 1 tablet (10 mg total) by mouth 2 (two) times a day. 10/15/2023 active Multiple Vitamin (Therems) TABS Take by mouth. 10/15/2023 active Thiamine 50 MG CAPS Take 1 capsule by mouth daily. 10/15/2023 aborted Thiamine Mononitrate (B1) 100 MG TABS Take by mouth daily. 10/15/2023 aborted rifAXIMin (XIFAXAN) 550 MG TABS tablet Take 1 tablet (550 mg total) by mouth 2 (two) times a day. 10/15/2023 active apixaban (ELIQUIS) 5 MG TABS tablet Take 1 tablet (5 mg total) by mouth every 12 (twelve) hours. 10/15/2023 active folic acid (FOLVITE) 400 MCG tablet Take 1 tablet (400 mcg total) by mouth daily. 10/15/2023 active sertraline (ZOLOFT) 100 MG tablet Take 1 tablet (100 mg total) by mouth daily. 10/15/2023 active pyridoxine (B-6) 50 MG tablet Take 1 tablet (50 mg total) by mouth daily. 10/15/2023 active Problems Problem Status Onset Date Problem Type Date of Resolution Source Hypoalbuminemia active EncounterDiagnosisAct [facility] Dysphagia active EncounterDiagnosisAct [facility] Bilateral lower extremity edema active EncounterDiagnosisAct [facility] Discogenic low back pain active 2018-01-25 ProblemAct [facility] History of pulmonary embolism active 2018-04-04 ProblemAct [facility] Anxiety active EncounterDiagnosisAct [facility] History of prostate cancer active 2018-04-04 ProblemAct [facility] History of DVT (deep vein thrombosis) active 2018-04-04 ProblemAct [facility] Dry skin active EncounterDiagnosisAct [facility] Multiple rib fractures active 2021-05-26 ProblemAct [facility] Depression active 2023-05-25 ProblemAct [facility] ETOH abuse active 2020-08-25 ProblemAct [facility] Fall against object active 2020-08-25 ProblemAct [facility] Alcohol use disorder, severe, dependence active 2020-04-11 ProblemAct [facility] Cirrhosis active 2023-06-21 ProblemAct [facility] Dizziness active 2020-08-25 ProblemAct [facility] Opioid dependence with opioid-induced disorder active 2023-05-25 ProblemAct [facility] Sciatic leg pain active 2018-01-25 ProblemAct C [facility] Failure to thrive in adult active 2021-06-19 ProblemAct [facility] Alcoholic cirrhosis of liver with ascites active 2021-06-20 ProblemAct [facility] MDD (major depressive disorder), recurrent severe, without psychosis active 2019-04-12 ProblemAct [facility] Essential hypertension active 2019-06-14 ProblemAct [facility] ANA (obstructive sleep apnea) active 2018-04-04 ProblemAct [facility] 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-08 ProblemAct [facility] Prostate cancer active 2018-01-[address] [facility] Discogenic low back pain active 2018-01-25 ProblemAct [facility] Chronic obstructive pulmonary disease active 2019-04-12 ProblemAct [facility] Lactic acidosis active 2021-05-[address] [facility] Alcohol use disorder, severe, dependence active 2019-04-11 ProblemAct [facility] Hypotension active 2021-05-26 ProblemAct [facility] Immunizations Vaccine Date Source Lot Number Status Covid-19 (Moderna 12+) 100mcg/0.5mL dosage 10/07/2021 [facility] [id number] completed Influenza trivalent, 0.5mL ( Fluad) 65yo and older 10/16/2024 [id number] Influenza trivalent, with pr eservative (Fluzone; Afluria) 6mo and older 08/25/2015 [facility] [id number] completed Influenza trivalent, with pr eservative (Fluzone; Afluria) 6mo and older 10/25/2016 [facility] [id number] completed Influenza Quadravalent, 0.5m l (Fluzone High-dose) 65yo and older 11/02/2022 [facility] [id number] comple kaitlin Influenza trivalent, with pr eservative (Fluzone; Afluria) 6mo and older 09/10/2023 [facility] Influenza trivalent, with pr eservative (Fluzone; Afluria) 6mo and older 10/04/2019 [id number] completed Influenza Quadrivalent, 0.5m l, preservative free (Fluarix; FluLaval; Fluzone) ages 6mo and older (Afluria) 3yo and older 10/07/2021 [facility] [id number] completed JNJ/Demyst[employer] SARS-CoV-2 COVID -19, vector-nr, rS-Ad26, preservative free 03/30/2021 [facility] [id number] completed Influenza Quadravalent, 0.5m l (Fluzone High-dose) 65yo and older 09/10/2023 [facility] [id number] comple kaitlin Pneumococcal polysaccharide 23 valent (Pneumovax 23) 2yo and older 12/05/2013 [facility] com pleted Influenza trivalent, with pr eservative (Fluzone; Afluria) 6mo and older 11/08/2018 [facility] [id number] completed
== END 2024-11-27 12:09 | disposition home or self-care (01) ==
PROVIDERS: PCP Internal Medicine; Visit Provider Surgery Vascular Surgery
DX: I71.43 Infrarenal abdominal aortic aneurysm, without rupture (principal)
CPT/HCPCS: 99204; G2211

== ENCOUNTER → 2024-11-27 11:33 | Outpatient (BNVA) | payer MEDICARE, SELFPAY | PROVIDERS: PCP Internal Medicine; Visit Provider Surgery Vascular Surgery | DX: I71.43 Infrarenal abdominal aortic aneurysm, without rupture (principal) | CPT/HCPCS: 99202 ==